=== PATIENT | female | born 1995 | race Caucasian/White ===

== ENCOUNTER 2021-06-11 01:17 | Emergency (ER) | payer OTHER, MEDICAID, SELFPAY ==
[2021-06-11 02:03] VITALS: BP 125/72; PULSE 68; RESP 20; TEMP 36.8; O2SAT 98; BMI 19.5
--- NOTE | 2021-06-11 02:16 | ED_ITS ---
Documented by User: JOHN Cano 06/11/21 02:44 HPI - Female Genitourinary General: Chief complaint: Urogenital-Female Stated complaint: UTI Time Seen by Provider: 06/11/21 02:15 History of Present Illness: 26-year-old female comes in today with complaints of left flank pain, nausea, and urinary difficulty. Patient has used some AZO for pain, and has taken at home urinary tract infection test. She showed me results of the test that showed negative nitrates but positive for white blood cells. Patient denies any chronic medical problems. MD elicited complaint: dysuria Onset (ago): hour(s) Location of symptoms: flank Severity: moderate Quality of pain: sharp Vaginal discharge: none Urinary symptoms: Dysuria Associated symptoms: Reports abdominal pain Sexual activity: Yes Patient : No Date of Last Menstrual Period: 06/02/21 Review of Systems General: Reports: 10 or more systems reviewed and unremarkable except in HPI and below Const: Reports: chills; Denies: fever(s) Card: Denies: chest pain Resp: Denies: dyspnea GI: Reports: abdominal pain : Reports: flank pain, difficulty voiding and urinary frequency Skin/Breast: Denies: rash [facility] ED Female Reproductive History: Date of last menstrual period: 06/02/21 Physical Exam Const: COMMON NORMALS: alert HENMT: COMMON NORMALS: normocephalic HEAD & SCALP: normocephalic Neck/C-Spine: COMMON NORMALS: full ROM Resp: COMMON NORMALS: normal respiratory effort and clear to auscultation bilaterally AUSCULTATION: clear to auscultation bilaterally Cardio: COMMON NORMALS: regular rate and regular rhythm RATE: regular rate RHYTHM: regular rhythm GI: COMMON NORMALS: Soft to palpation and non-tender PALPATION: Yes Soft to palpation : BLADDER/KIDNEY EXAM: Yes CVA tenderness on the left Back/Pelvis: GENERAL BACK: Yes CVA tenderness Extremity: COMMON NORMALS: normal to inspection Neuro: SENSORIUM/ORIENTATION: Yes alert Course Vital Signs: Vital signs: Vital Signs Temperature 98.2 F 06/11/21 02:03 Pulse Rate 68 06/11/21 02:03 Respiratory Rate 20 H 06/11/21 02:03 Blood Pressure 125/72 06/11/21 02:03 Pulse Oximetry 98 06/11/21 02:03 MDM - Female Medical Decision Making 26-year-old female comes in with left flank pain radiating into the groin and urinary discomfort. Symptoms started this morning. Patient taken some [id number] AZO and had taken a test for urinary tract infection which showed white blood cells in her urine. On exam patient has CVA tenderness on percussion to the left flank. Abdomen soft nontender. Skin is warm and dry. Differential diagnosis includes but not limited to renal calculi, urinary tract infection, pyelonephritis. Patient's urine was positive for nitrates and also scant amount of red and white blood cells. Strong suspicion for a mild pyelonephritis due to clinical exam. We will go ahead and treat with ceftriaxone 1 g IM. Continue with cephalexin for 5 days. Patient was given medication to help with nausea. Recommend follow-up with primary care for further instruction or return to the ER for worsening symptoms. Patient stated understanding. Lab Data Laboratory Results Urine Color [place] (Yellow) 06/11/21 02:25 Urine Appearance Clear (CLEAR) 06/11/21 02:25 Urine pH 5 (5-7) 06/11/21 02:25 Ur Specific [place] 1.010 (1.005-1.030) 06/11/21 02:25 Urine Protein 3+ (Negative) H 06/11/21 02:25 Urine Glucose (UA) Norm (Normal) 06/11/21 02:25 Urine Ketones Negative (Negative) 06/11/21 02:25 Urine Blood Neg (Negative) 06/11/21 02:25 Urine Nitrate Positive (Negative) H 06/11/21 02:25 Urine Bilirubin 2+ (Negative) H 06/11/21 02:25 Urine Urobilinogen 4+ mg/dL (Negative) H 06/11/21 02:25 Ur Leukocyte Esterase Negative (Negative) 06/11/21 02:25 Urine RBC 0-4 /hpf (0-2) H 06/11/21 02:25 Urine WBC 0-4 /hpf (0-5) H 06/11/21 02:25 Ur Squamous Epith Cells 0-4 /hpf (0-5) H 06/11/21 02:25 Amorphous Sediment Not Reportable 06/11/21 02:25 Urine Bacteria Trace /hpf (NONE) 06/11/21 02:25 Urine HCG, Qual Negative (Negative) 06/11/21 02:25 Discharge Plan Discharge Patient Disposition: Home Clinical Impression: Pyelonephritis Condition: Stable Prescriptions: New cephalexin 500 mg capsule 500 mg PO BID 5 Days Qty: 10 0RF ondansetron 4 mg tablet,disintegrating 4 mg PO Q8H PRN (Reason: nausea and vomiting) Qty: 7 0RF Discharge Orders: Discharge ED (Routine); Ordered 06/11/21 Ordered By: Elliot Galeano Discharge Diet: Usual diet Discharge Activity: Increase activity as tolerated Patient Instructions: Urinary Tract Infection in Women (ED) Activity Restrictions/Additional Instructions: Drink plenty of water. Take medication as directed. Follow-up with primary care for further instruction. Return to ER for new concerns. Coding Level of Care Code ED Senior Patient Account Representative for Chg Fwd Exam Comprehensive Documented by User: Kevyn Peck DO 06/11/21 03:30 HPI - Female Genitourinary General: Chief complaint: Urogenital-Female Stated complaint: UTI Time Seen by Provider: 06/11/21 02:15 Course Vital Signs: Vital signs: Vital Signs Temperature 98.2 F 06/11/21 02:03 Pulse Rate 68 06/11/21 02:03 Respiratory Rate 20 H 06/11/21 02:03 Blood Pressure 125/72 06/11/21 02:03 Pulse Oximetry 98 06/11/21 02:03 MDM - Female Medical Decision Making 26-year-old female comes in with left flank pain radiating into the groin and urinary discomfort. Symptoms started this morning. Patient taken some [id number] AZO and had taken a test for urinary tract infection which showed white blood cells in her urine. On exam patient has CVA tenderness on percussion to the left flank. Abdomen soft nontender. Skin is warm and dry. Differential diagnosis includes but not limited to renal calculi, urinary tract infection, pyelonephritis. Patient's urine was positive for nitrates and also scant amount of red and white blood cells. Strong suspicion for a mild pyelonephritis due to clinical exam. We will go ahead and treat with ceftriaxone 1 g IM. Continue with cephalexin for 5 days. Patient was given medication to help with nausea. Recommend follow-up with primary care for further instruction or return to the ER for worsening symptoms. Patient stated understanding. This patient was originally seen by JOHN Chen.? I agree with his history, evaluation, and treatment. Lab Data Laboratory Results Urine Color [place] (Yellow) 06/11/21 02:25 Urine Appearance Clear (CLEAR) 06/11/21 02:25 Urine pH 5 (5-7) 06/11/21 02:25 Ur Specific [place] 1.010 (1.005-1.030) 06/11/21 02:25 Urine Protein 3+ (Negative) H 06/11/21 02:25 Urine Glucose (UA) Norm (Normal) 06/11/21 02:25 Urine Ketones Negative (Negative) 06/11/21 02:25 Urine Blood Neg (Negative) 06/11/21 02:25 Urine Nitrate Positive (Negative) H 06/11/21 02:25 Urine Bilirubin 2+ (Negative) H 06/11/21 02:25 Urine Urobilinogen 4+ mg/dL (Negative) H 06/11/21 02:25 Ur Leukocyte Esterase Negative (Negative) 06/11/21 02:25 Urine RBC 0-4 /hpf (0-2) H 06/11/21 02:25 Urine WBC 0-4 /hpf (0-5) H 06/11/21 02:25 Ur Squamous Epith Cells 0-4 /hpf (0-5) H 06/11/21 02:25 Amorphous Sediment Not Reportable 06/11/21 02:25 Urine Bacteria Trace /hpf (NONE) 06/11/21 02:25 Urine HCG, Qual Negative (Negative) 06/11/21 02:25 Discharge Plan Discharge Patient Disposition: Home Clinical Impression: Pyelonephritis Condition: Stable Prescriptions: New cephalexin 500 mg capsule 500 mg PO BID 5 Days Qty: 10 0RF ondansetron 4 mg tablet,disintegrating 4 mg PO Q8H PRN (Reason: nausea and vomiting) Qty: 7 0RF Discharge Orders: Discharge ED (Routine); Ordered 06/11/21 Ordered By: Elliot Galeano Discharge Diet: Usual diet Discharge Activity: Increase activity as tolerated Patient Instructions: Urinary Tract Infection in Women (ED) Activity Restrictions/Additional Instructions: Drink plenty of water. Take medication as directed. Follow-up with primary care for further instruction. Return to ER for new concerns. Coding Level of Care Code ED Senior Patient Account Representative for Sylvie Fwd Exam Comprehensive
[2021-06-11 02:31] LABS: Add Urine Microscopic? YES; Bilirubin Urine 2+ (Negative); Blood Urine Neg (Negative); Glucose Urine UA Norm (Normal); Ketones Urine Negative (Negative); Leukocyte Esterase Urine Negative (Negative); Nitrate Urine Positive (Negative); Protein Urine 3+ (Negative); Urine Appearance Clear (CLEAR); Urine Color Orange (Yellow); Urobilinogen Urine 4+ mg/dL (Negative); pH Urine 5 (5-7)
[2021-06-11 02:37] LABS: Add Urine Culture? No; Bacteria Urine TRACE /hpf; RBC Urine 0-4 /hpf (0-2); Squamous Epithelial Cell Urine 0-4 /hpf (0-5); WBC Urine 0-4 /hpf (0-5)
[2021-06-11] MEDS: ondansetron 4 MG Tablet PO (02:57)
[2021-06-11] MEDS: cefTRIAXone 1,000 MG in lidocaine 1% 2.1 ML 2 MG IM (02:58)
== END 2021-06-11 03:05 | disposition home or self-care (01) ==
PROVIDERS: Emergency Provider Nurse Practitioner Family
DX: N12 Tubulo-interstitial nephritis, not specified as acute or chronic (principal)
CPT/HCPCS: 81001; 81025; 96372; 99283; J0696; Q0162

== ENCOUNTER → 2021-06-14 08:03 | Outpatient (BNVA) | payer OTHER, MEDICAID, SELFPAY | PROVIDERS: Visit Provider Family Medicine Adult Medicine | DX: R39.9 Unspecified symptoms and signs involving the genitourinary system (principal); N12 Tubulo-interstitial nephritis, not specified as acute or chronic | CPT/HCPCS: 81003; 87086; 87491; 87591 ==

== ENCOUNTER 2021-06-15 11:28 | Emergency (ER) | payer OTHER, MEDICAID, SELFPAY ==
[2021-06-15 11:45] VITALS: BP 125/72; PULSE 82; RESP 14; TEMP 36.9; O2SAT 97; BMI 19.5
--- NOTE | 2021-06-15 11:58 | ED_ITS ---
Documented by User: ALFREDO Mcclure 06/16/21 12:26 HPI - General Adult General: Chief complaint: General Medical Stated complaint: Pt states she has kidney infection pain on rt side Time Seen by Provider: 06/15/21 11:51 History of Present Illness: Patient is a 26-year-old female comes to the ED with UTI symptoms and right flank pain. She says symptoms have been going on for about 2 weeks now. Patient was seen here in the emergency department back on June 11 for same complaint. She was diagnosed with pyelonephritis and discharged home on cephalexin. She was not having any improvement in symptoms and then followed up with urgent care yesterday and they changed her antibiotic to ciprofloxacin. She just started taking the Cipro yesterday. She is still having dysuria and now is having some bilateral flank pain. She says the right sided flank pain started today. Denies any current nausea or vomiting. She also endorses having some right and left lower abdominal tenderness. Associated symptoms: Deny chest pain, dyspnea, headache(s), nausea, rash, palpitations or vomiting Review of Systems Const: Denies: fever(s), chills or fatigue Eyes: Denies: change in vision or eye discomfort ENMT: Denies: throat pain, odynophagia, nasal discharge or nasal congestion Card: Denies: chest pain, palpitations, edema, swelling of feet/ankles, dyspnea on exertion or orthopnea Resp: Denies: dyspnea, productive cough or non-productive cough GI: Denies: abdominal pain, nausea, vomiting, diarrhea, constipation or hematochezia : Reports: flank pain and dysuria; Denies: hematuria Musc: Denies: neck pain, back pain or extremity swelling Skin/Breast: Denies: rash or new lesions Neuro: Denies: headache(s), numbness in extremities or weakness in extremities PFSH ED PFSH: Medical History No pertinent family history Surgical History No pertinent past surgical history Social History Smoking and tobacco status: never smoked Female Reproductive History: Date of last menstrual period: 06/02/21 Physical Exam Const: COMMON NORMALS: no acute distress, patient oriented x3, healthy appearing and alert GENERAL APPEARANCE: cooperative and comfortable HENMT: COMMON NORMALS: normocephalic HEAD & SCALP: normocephalic MOUTH: Normal oral and palatal mucosa present THROAT: posterior oropharynx normal and uvula midline Neck/C-Spine: COMMON NORMALS: supple GENERAL: Yes normal visual inspection Resp: COMMON NORMALS: normal respiratory effort, No retractions, No use of accessory muscles and clear to auscultation bilaterally AUSCULTATION: clear to auscultation bilaterally Cardio: COMMON NORMALS: regular rate, regular rhythm, S1 normal heart sound present, S2 normal heart sound present, No gallops present (Cardio), No clicks present (Cardio), No murmurs present (Cardio) and Peripheral pulses 2+ throughout RATE: regular rate RHYTHM: regular rhythm HEART SOUNDS: S1 normal heart sound present and S2 normal heart sound present PERIPHERAL PULSES: Peripheral pulses 2+ throughout GI: COMMON NORMALS: Normal to inspection, nondistended, normoactive bowel sounds present, Soft to palpation, non-tender and no masses PALPATION: Yes Soft to palpation : BLADDER/KIDNEY EXAM: Yes CVA tenderness Back/Pelvis: GENERAL BACK: Yes CVA tenderness CVA tenderness: bilateral Extremity: COMMON NORMALS: normal to inspection and no pedal edema Neuro: COMMON NORMALS: patient oriented x3 and moves all extremities SENSORIUM/ORIENTATION: Yes alert Skin: GENERAL SKIN EXAM: dry skin Course Vital Signs: Vital signs: Vital Signs Temperature 98.4 F 06/15/21 11:45 Pulse Rate 82 06/15/21 12:47 Respiratory Rate 18 06/15/21 12:47 Blood Pressure 122/78 06/15/21 12:09 Pulse Oximetry 92 06/15/21 12:47 [facility] - General Adult Medical Decision Making Patient is a 26-year-old female who comes to the ED with lower back pain and UTI symptoms. She was seen here in the ED for same complaint on June 11 and was diagnosed with pyelonephritis and discharged home with cephalexin. Symptoms were not improving and she saw urgent care yesterday and they switched her to ciprofloxacin. She just started taking Cipro yesterday. She is still having bilateral flank pain. Vitals are stable. She has some bilateral CVA tenderness but the rest of exam is benign. Patient appears healthy and nontoxic and in no acute distress or pain. CBC, CMP and UA were unremarkable. hCG negative. CT of abdomen pelvis showed bilateral ovarian follicles but no other acute process. Patient was diagnosed with UTI symptoms and was discharged home. She was told to continue taking her ciprofloxacin as previously prescribed. Patient is new in town and would like to get set up with a primary care physician so I placed an order with case management to refer her to one. Return ED precautions given. Patient understood and agreed with plan. Lab Data I reviewed the patient's lab results. : 06/15/21 12:08 06/15/21 12:08 Radiology Impressions Abdomen/Pelvis CT 06/15/21 13:08 IMPRESSION: 1. No renal obstruction or perinephric stranding. 2. No ascites. 3. Bilateral ovarian follicles. 4. No free fluid in the pelvis. 5. Partially visualized appendix appears normal. Laboratory Results WBC 6.0 10^3/uL (4.0-10.0) 06/15/21 12:08 RBC 4.11 10^6/uL (4.1-5.3) 06/15/21 12:08 Hgb 12.2 g/dL (11.5-15.3) 06/15/21 12:08 Hct 37.7 % (37.0-47.0) 06/15/21 12:08 MCV 91.7 fl (81-99) 06/15/21 12:08 MCH 29.7 pg (28.0-34.0) 06/15/21 12:08 MCHC 32.4 g/dL (30.0-36.0) 06/15/21 12:08 RDW 12.7 % (12.1-15.1) 06/15/21 12:08 Plt Count 342 10^3/cmm (130-400) 06/15/21 12:08 MPV 9.6 fL (7.4-10.4) 06/15/21 12:08 Neut % (Auto) 58.5 % 06/15/21 12:08 Lymph % (Auto) 34.5 % 06/15/21 12:08 [place] % (Auto) 5.4 % 06/15/21 12:08 Eos % (Auto) 0.8 % 06/15/21 12:08 Baso % (Auto) 0.5 % 06/15/21 12:08 Neut # (Auto) 3.49 10^3/uL (1.8-7.7) 06/15/21 12:08 Lymph # (Auto) 2.1 10^3/uL (0.8-4.8) 06/15/21 12:08 [place] # (Auto) 0.3 10^3/uL (0.2-0.9) 06/15/21 12:08 Eos # (Auto) 0.1 10^3/uL (0.0-0.8) 06/15/21 12:08 Baso # (Auto) 0.0 10^3/uL (0.0-0.1) 06/15/21 12:08 Nucleated RBC % (auto) 0 % 06/15/21 12:08 Nucleated RBCs # 0.0 /100WBC 06/15/21 12:08 Sodium 139 mmol/L (136-145) 06/15/21 12:08 Potassium 3.4 mmol/L (3.5-5.1) L 06/15/21 12:08 Chloride 102 mmol/L (98-107) 06/15/21 12:08 Carbon Dioxide 27 mmol/L (22-29) 06/15/21 12:08 Anion Gap 13.4 (5-19) 06/15/21 12:08 BUN 8 mg/dL (6-20) 06/15/21 12:08 Creatinine 0.6 mg/dL (0.5-0.9) 06/15/21 12:08 GFR Calculation 119.9 mL/min (90-130) 06/15/21 12:08 Glucose 102 mg/dL (65-115) 06/15/21 12:08 Calculated Osmolality 287 mOsm/kg (285-295) 06/15/21 12:08 Calcium 9.4 mg/dL (8.5-10.5) 06/15/21 12:08 Total Bilirubin 0.9 mg/dL (0.15-1.2) 06/15/21 12:08 AST 12 U/L (0-32) 06/15/21 12:08 ALT 10 U/L (0-33) 06/15/21 12:08 Alkaline Phosphatase 37 IU/L (35-105) 06/15/21 12:08 Total Protein 7.2 g/dL (6.6-8.7) 06/15/21 12:08 Albumin 5.0 g/dL (3.5-5.2) 06/15/21 12:08 Globulin 2.2 g/dL (1.3-4.6) 06/15/21 12:08 Lipase 39 U/L (13-60) 06/15/21 12:08 HCG, Qual Negative (Negative) 06/15/21 12:08 Urine Color Yellow (Yellow) 06/15/21 12:08 Urine Appearance Clear (CLEAR) 06/15/21 12:08 Urine pH 5 (5-7) 06/15/21 12:08 Ur Specific [place] 1.025 (1.005-1.030) 06/15/21 12:08 Urine Protein Neg (Negative) 06/15/21 12:08 Urine Glucose (UA) Norm (Normal) 06/15/21 12:08 Urine Ketones 1+ (Negative) H 06/15/21 12:08 Urine Blood Neg (Negative) 06/15/21 12:08 Urine Nitrate Negative (Negative) 06/15/21 12:08 Urine Bilirubin Neg (Negative) 06/15/21 12:08 Urine Urobilinogen Norm mg/dL (Negative) 06/15/21 12:08 Ur Leukocyte Esterase Negative (Negative) 06/15/21 12:08 Discharge Plan Discharge Patient Disposition: Home Clinical Impression: UTI symptoms, Follicular cyst of both ovaries Condition: Stable Prescriptions: No Action cranberry fruit concentrate [Azo Cranberry] 1 tab PO PRN PRN (Reason: Pain) 0RF ciprofloxacin HCl 500 mg tablet 500 mg PO BID Qty: 30 0RF ProAir HFA 90 mcg/actuation Hfa Aerosol Inhaler 2 puff INHALATION QID PRN (Reason: Shortness Of Breath) 0RF ondansetron 4 mg tablet,disintegrating 4 mg PO Q8H PRN (Reason: nausea and vomiting) Qty: 7 0RF Discharge Orders: Discharge ED (Routine); Ordered 06/15/21 Ordered By: Jer Howell Discharge Diet: Regular Discharge Activity: Resume usual activity Patient Instructions: Ovarian Cyst (ED), Urinary Tract Infection in Women (DC) Activity Restrictions/Additional Instructions: Follow-up with medical provider as directed. Case management be contacting you next several days to set up an appoint with primary care physician. Continue taking ciprofloxacin as prescribed. Return to the ER or your medical provider if condition worsens. Please read and understand discharge instructions. Thank you for choosing [facility] for your healthcare needs today. Please realize this is an emergency room and that we are providing you with a medical screening exam and this may not be complete and all inclusive of all the testing and or work up that you may need to determine your ailment or severity of your illness. It is very important that you follow up as instructed or that you return to the Emergency Department should you have concerns or if your condition changes or worsens in any way. Coding Level of Care Code ED Project Development Leader for Chg Fwd Exam Comprehensive Documented by User: Cirpiano Headley DO 06/16/21 14:23 HPI - General Adult General: Chief complaint: General Medical Stated complaint: Pt states she has kidney infection pain on rt side Time Seen by Provider: 06/15/21 11:51 [facility] ED PFSH: Medical History No pertinent family history Surgical History No pertinent past surgical history Social History Smoking and tobacco status: never smoked Course Vital Signs: Vital signs: Vital Signs Temperature 98.4 F 06/15/21 11:45 Pulse Rate 82 06/15/21 12:47 Respiratory Rate 18 06/15/21 12:47 Blood Pressure 122/78 06/15/21 12:09 Pulse Oximetry 92 06/15/21 12:47 MDM - General Adult Medical Decision Making Patient is a 26-year-old female who comes to the ED with lower back pain and UTI symptoms. She was seen here in the ED for same complaint on June 11 and was diagnosed with pyelonephritis and discharged home with cephalexin. Symptoms were not improving and she saw urgent care yesterday and they switched her to ciprofloxacin. She just started taking Cipro yesterday. She is still having bilateral flank pain. Vitals are stable. She has some bilateral CVA tenderness but the rest of exam is benign. Patient appears healthy and nontoxic and in no acute distress or pain. CBC, CMP and UA were unremarkable. hCG negative. CT of abdomen pelvis showed bilateral ovarian follicles but no other acute process. Patient was diagnosed with UTI symptoms and was discharged home. She was told to continue taking her ciprofloxacin as previously prescribed. Patient is new in town and would like to get set up with a primary care physician so I placed an order with case management to refer her to one. Return ED precautions given. Patient understood and agreed with plan. Chart reviewed and patient discussed with midlevel. Agree with assessment and plan. Medical Records I reviewed the patient's medical records. Lab Data : 06/15/21 12:08 06/15/21 12:08 Radiology Impressions Abdomen/Pelvis CT 06/15/21 13:08 IMPRESSION: 1. No renal obstruction or perinephric stranding. 2. No ascites. 3. Bilateral ovarian follicles. 4. No free fluid in the pelvis. 5. Partially visualized appendix appears normal. Laboratory Results WBC 6.0 10^3/uL (4.0-10.0) 06/15/21 12:08 RBC 4.11 10^6/uL (4.1-5.3) 06/15/21 12:08 Hgb 12.2 g/dL (11.5-15.3) 06/15/21 12:08 Hct 37.7 % (37.0-47.0) 06/15/21 12:08 MCV 91.7 fl (81-99) 06/15/21 12:08 MCH 29.7 pg (28.0-34.0) 06/15/21 12:08 MCHC 32.4 g/dL (30.0-36.0) 06/15/21 12:08 RDW 12.7 % (12.1-15.1) 06/15/21 12:08 Plt Count 342 10^3/cmm (130-400) 06/15/21 12:08 MPV 9.6 fL (7.4-10.4) 06/15/21 12:08 Neut % (Auto) 58.5 % 06/15/21 12:08 Lymph % (Auto) 34.5 % 06/15/21 12:08 [place] % (Auto) 5.4 % 06/15/21 12:08 Eos % (Auto) 0.8 % 06/15/21 12:08 Baso % (Auto) 0.5 % 06/15/21 12:08 Neut # (Auto) 3.49 10^3/uL (1.8-7.7) 06/15/21 12:08 Lymph # (Auto) 2.1 10^3/uL (0.8-4.8) 06/15/21 12:08 [place] # (Auto) 0.3 10^3/uL (0.2-0.9) 06/15/21 12:08 Eos # (Auto) 0.1 10^3/uL (0.0-0.8) 06/15/21 12:08 Baso # (Auto) 0.0 10^3/uL (0.0-0.1) 06/15/21 12:08 Nucleated RBC % (auto) 0 % 06/15/21 12:08 Nucleated RBCs # 0.0 /100WBC 06/15/21 12:08 Sodium 139 mmol/L (136-145) 06/15/21 12:08 Potassium 3.4 mmol/L (3.5-5.1) L 06/15/21 12:08 Chloride 102 mmol/L (98-107) 06/15/21 12:08 Carbon Dioxide 27 mmol/L (22-29) 06/15/21 12:08 Anion Gap 13.4 (5-19) 06/15/21 12:08 BUN 8 mg/dL (6-20) 06/15/21 12:08 Creatinine 0.6 mg/dL (0.5-0.9) 06/15/21 12:08 GFR Calculation 119.9 mL/min (90-130) 06/15/21 12:08 Glucose 102 mg/dL (65-115) 06/15/21 12:08 Calculated Osmolality 287 mOsm/kg (285-295) 06/15/21 12:08 Calcium 9.4 mg/dL (8.5-10.5) 06/15/21 12:08 Total Bilirubin 0.9 mg/dL (0.15-1.2) 06/15/21 12:08 AST 12 U/L (0-32) 06/15/21 12:08 ALT 10 U/L (0-33) 06/15/21 12:08 Alkaline Phosphatase 37 IU/L (35-105) 06/15/21 12:08 Total Protein 7.2 g/dL (6.6-8.7) 06/15/21 12:08 Albumin 5.0 g/dL (3.5-5.2) 06/15/21 12:08 Globulin 2.2 g/dL (1.3-4.6) 06/15/21 12:08 Lipase 39 U/L (13-60) 06/15/21 12:08 HCG, Qual Negative (Negative) 06/15/21 12:08 Urine Color Yellow (Yellow) 06/15/21 12:08 Urine Appearance Clear (CLEAR) 06/15/21 12:08 Urine pH 5 (5-7) 06/15/21 12:08 Ur Specific [place] 1.025 (1.005-1.030) 06/15/21 12:08 Urine Protein Neg (Negative) 06/15/21 12:08 Urine Glucose (UA) Norm (Normal) 06/15/21 12:08 Urine Ketones 1+ (Negative) H 06/15/21 12:08 Urine Blood Neg (Negative) 06/15/21 12:08 Urine Nitrate Negative (Negative) 06/15/21 12:08 Urine Bilirubin Neg (Negative) 06/15/21 12:08 Urine Urobilinogen Norm mg/dL (Negative) 06/15/21 12:08 Ur Leukocyte Esterase Negative (Negative) 06/15/21 12:08 Discharge Plan Discharge Patient Disposition: Home Clinical Impression: UTI symptoms, Follicular cyst of both ovaries Condition: Stable Prescriptions: No Action cranberry fruit concentrate [Azo Cranberry] 1 tab PO PRN PRN (Reason: Pain) 0RF ciprofloxacin HCl 500 mg tablet 500 mg PO BID Qty: 30 0RF ProAir HFA 90 mcg/actuation Hfa Aerosol Inhaler 2 puff INHALATION QID PRN (Reason: Shortness Of Breath) 0RF ondansetron 4 mg tablet,disintegrating 4 mg PO Q8H PRN (Reason: nausea and vomiting) Qty: 7 0RF Discharge Orders: Discharge ED (Routine); Ordered 06/15/21 Ordered By: Jer Howell Discharge Diet: Regular Discharge Activity: Resume usual activity Patient Instructions: Ovarian Cyst (ED), Urinary Tract Infection in Women (DC) Activity Restrictions/Additional Instructions: Follow-up with medical provider as directed. Case management be contacting you next several days to set up an appoint with primary care physician. Continue taking ciprofloxacin as prescribed. Return to the ER or your medical provider if condition worsens. Please read and understand discharge instructions. Thank you for choosing [facility] for your healthcare needs today. Please realize this is an emergency room and that we are providing you with a medical screening exam and this may not be complete and all inclusive of all the testing and or work up that you may need to determine your ailment or severity of your illness. It is very important that you follow up as instructed or that you return to the Emergency Department should you have concerns or if your condition changes or worsens in any way. Coding Level of Care Code ED Project Development Leader for Sylvie Holley Exam Comprehensive
[2021-06-15 12:09] VITALS: BP 122/78; PULSE 78; RESP 18; O2SAT 100
[2021-06-15 12:14] LABS: Add Urine Microscopic? NO; Charge for UA Resulting for Rev
[2021-06-15 12:16] LABS: Basophils % 0.5 %; Eosinophils # 0.1 10^3/uL (0.0-0.8); Eosinophils % 0.8 %; Hematocrit 37.7 % (37.0-47.0); Hemoglobin 12.2 g/dL (11.5-15.3); Lymphocytes # 2.1 10^3/uL (0.8-4.8); Lymphocytes % 34.5 %; Mean Corpuscular HGB Conc 32.4 g/dL (30.0-36.0); Mean Corpuscular Hemoglobin 29.7 pg (28.0-34.0); Mean Corpuscular Volume 91.7 fl (81-99); Mean Platelet Volume 9.6 fL (7.4-10.4); Monocytes # 0.3 10^3/uL (0.2-0.9); Monocytes % 5.4 %; Neutrophils # 3.49 10^3/uL (1.8-7.7); Neutrophils % 58.5 %; Nucleated Red Blood Cells % 0 %; Platelet Count 342 10^3/cmm (130-400); Red Blood Count 4.11 10^6/uL (4.1-5.3); Red Cell Distribution Width 12.7 % (12.1-15.1)
[2021-06-15 12:46] LABS: HCG Qualitative Urine. Negative (Negative)
[2021-06-15 12:47] VITALS: PULSE 82; RESP 18; O2SAT 92
[2021-06-15 12:55] LABS: Alanine Aminotransferase 10 U/L (0-33); Alkaline Phosphatase 37 IU/L (35-105); Anion Gap 13.4 (5-19); Aspartate Amino Transferase 12 U/L (0-32); Blood Urea Nitrogen 8 mg/dL (6-20); Calcium 9.4 mg/dL (8.5-10.5); Carbon Dioxide 27 mmol/L (22-29); Chloride 102 mmol/L (98-107); Globulin 2.2 g/dL (1.3-4.6); Glomerular Filtration Rate 119.9 mL/min (90-130); Glucose 102 mg/dL (65-115); Lipase 39 U/L (13-60); Osmolality Calculated 287 mOsm/kg (285-295); Potassium 3.4 mmol/L (3.5-5.1); Sodium 139 mmol/L (136-145); Total Bilirubin 0.9 mg/dL (0.15-1.2); Total Protein 7.2 g/dL (6.6-8.7)
[2021-06-15 13:01] LABS: Bilirubin Urine Neg (Negative); Blood Urine Neg (Negative); Glucose Urine UA Norm (Normal); Ketones Urine 1+ (Negative); Leukocyte Esterase Urine Negative (Negative); Nitrate Urine Negative (Negative); Protein Urine Neg (Negative); Specific Gravity, Urine 1.025 (1.005-1.030); Urine Appearance Clear (CLEAR); Urine Color Yellow (Yellow); Urobilinogen Urine Norm (Negative); pH Urine 5 (5-7)
--- NOTE | 2021-06-15 13:08 | CT_ITS ---
WS: [id number] CT ABDOMEN AND PELVIS WITH CONTRAST HISTORY: bilateral flank pain, bilat lower abdomen pain and dysuria TECHNIQUE: Imaging performed of the abdomen and pelvis with IV contrast. Single phase imaging of the abdomen. Coronal and sagittal reformats are submitted. All CT scans at [facility] use at [address] one of these dose optimization techniques: automated exposure control; mA and/or kV adjustment per patient size (includes targeted exams where dose is matched to clinical indication); or iterative re construction. IV CONTRAST: Omnipaque 300; 95 mL IV. Oral contrast: No DLP: 699.48 mGy.cm COMPARISON: None available. Lower thorax: Lung bases are clear. Heart is normal size. No hiatal hernia. Liver/biliary system: Normal size with no intrahepatic dilatation. Gallbladder: Normal. No gallstones or wall thickening. No pericholecystic fluid. Pancreas: Normal size pancreas and pancreatic duct. No adjacent inflammation. Spleen: Normal size spleen. No mass or infarct. Adrenal glands: Normal. Right kidney: Normal. Left kidney: Normal. Aorta: Normal. Lymphadenopathy: None. Free fluid: None. GI tract: Marked distention of the stomach with food products and air. No small bowel obstruction. Th ere is mild diffuse fecal retention and constipation. The appendix is only partially visualized. Visu alized appendix does appear normal. There is no adjacent inflammation in the RIGHT lower quadrant. Abdominal wall: Unremarkable abdominal wall. No hernia. Pelvis: No free fluid or adenopathy within the pelvis. There are small follicles within each ovary. L argest follicle RIGHT ovary measures 17 x 13 mm. There is a small corpus luteum in the LEFT ovary evi suring 13 mm with peripheral enhancement. Bones: Unremarkable. CT/CT abdomen pelvis w con* [id number] IMPRESSION: 1. No renal obstruction or perinephric stranding. 2. No ascites. 3. Bilateral ovarian follicles. 4. No free fluid in the pelvis. 5. Partially visualized appendix appears normal.
[2021-06-15] MEDS: iohexol 300 mg/mL 100 mL Btl IV (13:28)
[2021-06-15] MEDS: ondansetron 2 mg/ML SDV 2 mL 4 MG IVP (14:30)
--- NOTE | 2021-06-17 10:56 | DCPLANNER ---
airport manager had message to speak with patient about getting established with a primary care physician. airport manager spoke with patient, she stated that she has a primary care physician.
== END 2021-06-15 14:38 | disposition home or self-care (01) ==
PROVIDERS: Emergency Provider Physician Assistant
DX: N83.02 Follicular cyst of left ovary (principal); N83.01 Follicular cyst of right ovary; N39.0 Urinary tract infection, site not specified
CPT/HCPCS: 74177; 80053; 81003; 81025; 83690; 85025; 96374; 99283; J2405; Q9967

== ENCOUNTER → 2021-06-16 15:03 | Outpatient (BNVA) | payer OTHER, SELFPAY | PROVIDERS: Visit Provider Family Medicine Adult Medicine | DX: R39.9 Unspecified symptoms and signs involving the genitourinary system (principal); N83.01 Follicular cyst of right ovary; N83.02 Follicular cyst of left ovary; F32.81 Premenstrual dysphoric disorder; N92.4 Excessive bleeding in the premenopausal period | CPT/HCPCS: 81000 ==

== ENCOUNTER 2021-06-20 19:01 | Emergency (ER) | payer OTHER, MEDICAID, SELFPAY ==
[2021-06-20 19:05] VITALS: BP 127/86; PULSE 67; RESP 16; TEMP 36.8; O2SAT 100; BMI 19.5
--- NOTE | 2021-06-20 19:28 | W.ED.GENADLT ---
HPI - General Adult General: Chief complaint: General Medical Stated complaint: ovary pain Time Seen by Provider: 06/20/21 19:09 History of Present Illness: Patient is a 26-year-old female with history of 2 prior presenting to the emergency room for evaluation of left-sided flank pain. Patient tells me she was seen on 06/15 and 06/16 for similar pain. At those visits, patient was diagnosed with either UTI versus pyelonephritis versus kidney stone. Patient has been taking ciprofloxacin without any significant symptom. Patient continues to have left-sided flank pain. Patient denies any urinary complaints today including urinary urgency, hematuria or polyuria. Patient has no prior history of kidney stones. Patient denies any new vaginal discharge. Patient reports no problem with p.o. intake, nausea/vomiting fever/chills or diarrhea, melena hematochezia. Onset: 7 days Duration:ongoing Location:flank pain Severity:mild/moderate Associated symptoms: Deny chest pain, dyspnea, nausea, rash, palpitations or vomiting Review of Systems Const: Denies: fever(s) or chills Eyes: Denies: change in vision ENMT: Denies: mouth pain Card: Denies: chest pain or palpitations Resp: Denies: dyspnea or non-productive cough GI: Reports: other (+L sided flank pain); Denies: abdominal pain, nausea, vomiting or diarrhea : Denies: dysuria Musc: Denies: extremity pain Skin/Breast: Denies: rash or new lesions Neuro: Denies: weakness in extremities Psych: Reports: other (Normal mood) Rubén/Lymph: Denies: easy bruising PFSH ED PFSH: Medical History Menorrhagia, premenopausal No pertinent family history Pre-menstrual mood disorder Surgical History No pertinent past surgical history Social History Smoking and tobacco status: never smoked Physical Exam Const: COMMON NORMALS: alert HENMT: COMMON NORMALS: atraumatic HEAD & SCALP: atraumatic MOUTH: moist mucous membranes not abnormal Eye: COMMON NORMALS: EOMs intact bilaterally and conjunctivae normal CONJUNCTIVA: Yes conjunctivae normal Neck/C-Spine: COMMON NORMALS: full ROM and supple Resp: COMMON NORMALS: normal respiratory effort and clear to auscultation bilaterally AUSCULTATION: clear to auscultation bilaterally Cardio: COMMON NORMALS: regular rate RATE: regular rate GI: COMMON NORMALS: Soft to palpation and non-tender PALPATION: Yes Soft to palpation OTHER: No focal TTP. NO guarding rebound, guarding, rigidity. No CVA tenderness to percussion. Neg Webb/Neg McBurney's point tenderness, no suprabupic tenderness to palpation. Extremity: COMMON NORMALS: full ROM Neuro: SENSORIUM/ORIENTATION: Yes alert MOTOR EXAM: No Abnormal motor strength present and Other motor observations present (no focal motor deficits) Psych: COMMON NORMALS: speech normal SPEECH: Yes normal speech MOOD & AFFECT: Yes euthymic mood Course Vital Signs: Vital signs: Vital Signs Temperature 98.3 F 06/20/21 19:05 Pulse Rate 92 06/20/21 21:58 Respiratory Rate 14 06/20/21 21:58 Blood Pressure 123/58 06/20/21 21:58 Pulse Oximetry 99 06/20/21 21:58 MDM - General Adult Medical Decision Making 26-year-old female presenting to the emergency room for evaluation of persistent left-sided flank pain despite on antibiotics for UTI versus pyelonephritis. On exam, patient has no focal tenderness palpation. No CVA tenderness, no guarding no rebound tenderness. Blood work showed no signs of UTI or signs of kidney stones. Creatinine within normal limit. No other focal findings. Patient received GI cocktail, IVF, Tylenol with improvement in symptoms. No suspicion for other acute intra-abdominal pathology including SBO, biliary pathology, appendicitis, diverticulitis, or other emergent condition requiring surgery. Instructed to follow PCP for further evaluation and management of symptoms today. Rx tylenol PRN abd pain, maalox/pepcid PRN dyspepsia, and zofran PRN nausea/vomiting Disposition: Discharge. Patient counseled regarding diagnostic impression, treatment plan. Patient given ED strict return precautions to return for continuation, worsening, or development of new symptoms. Instructed to f/u w/ PCP regarding symptoms today. Patient verbalized understanding. Lab Data : 06/20/21 20:02 06/20/21 20:02 Laboratory Results WBC 7.8 10^3/uL (4.0-10.0) 06/20/21 20:02 RBC 4.25 10^6/uL (4.1-5.3) 06/20/21 20: Hgb 12.4 g/dL (11.5-15.3) 06/20/21 20: Hct 38.4 % (37.0-47.0) 06/20/21 20: MCV 90.4 fl (81-99) 06/20/21 20: MCH 29.2 pg (28.0-34.0) 06/20/21 20: MCHC 32.3 g/dL (30.0-36.0) 06/20/21 20: RDW 12.7 % (12.1-15.1) 06/20/21 20: Plt Count 335 10^3/cmm (130-400) 06/20/21 20: MPV 9.5 fL (7.4-10.4) 06/20/21 20: Neut % (Auto) 61.3 % 06/20/21 20: Lymph % (Auto) 30.6 % 06/20/21 20: [place] % (Auto) 7.1 % 06/20/21 20: Eos % (Auto) 0.5 % 06/20/21 20: Baso % (Auto) 0.4 % 06/20/21 20: Neut # (Auto) 4.80 10^3/uL (1.8-7.7) 06/20/21 20: Lymph # (Auto) 2.4 10^3/uL (0.8-4.8) 06/20/21 20: [place] # (Auto) 0.6 10^3/uL (0.2-0.9) 06/20/21 20: Eos # (Auto) 0.0 10^3/uL (0.0-0.8) 06/20/21 20: Baso # (Auto) 0.0 10^3/uL (0.0-0.1) 06/20/21 20: Nucleated RBC % (auto) 0 % 06/20/21 20: Nucleated RBCs # 0.0 /100WBC 06/20/21 20: Sodium 139 mmol/L (136-145) 06/20/21 20:02 Potassium 3.5 mmol/L (3.5-5.1) 06/20/21 20:02 Chloride 100 mmol/L (98-107) 06/20/21 20:02 Carbon Dioxide 26 mmol/L (22-29) 06/20/21 20:02 Anion Gap 16.5 (5-19) 06/20/21 20:02 BUN 14 mg/dL (6-20) 06/20/21 20:02 Creatinine 0.6 mg/dL (0.5-0.9) 06/20/21 20:02 GFR Calculation 119.9 mL/min (90-130) 06/20/21 20:02 Glucose 94 mg/dL (65-115) 06/20/21 20:02 Calculated Osmolality 288 mOsm/kg (285-295) 06/20/21 20:02 Calcium 9.9 mg/dL (8.5-10.5) 06/20/21 20:02 Total Bilirubin 1.1 mg/dL (0.15-1.2) 06/20/21 20:02 AST 12 U/L (0-32) 06/20/21 20:02 ALT 10 U/L (0-33) 06/20/21 20:02 Alkaline Phosphatase 40 IU/L (35-105) 06/20/21 20:02 Total Protein 8.2 g/dL (6.6-8.7) 06/20/21 20:02 Albumin 5.3 g/dL (3.5-5.2) H 06/20/21 20:02 Globulin 2.9 g/dL (1.3-4.6) 06/20/21 20:02 Lipase 32 U/L (13-60) 06/20/21 20:02 Urine Color Straw (Yellow) 06/20/21 19:17 Urine Appearance Hazy (CLEAR) A 06/20/21 19:17 Urine pH 7 (5-7) 06/20/21 19:17 Ur Specific [place] 1.010 (1.005-1.030) 06/20/21 19:17 Urine Protein Neg (Negative) 06/20/21 19:17 Urine Glucose (UA) Norm (Normal) 06/20/21 19:17 Urine Ketones 1+ (Negative) H 06/20/21 19:17 Urine Blood Neg (Negative) 06/20/21 19:17 Urine Nitrate Negative (Negative) 06/20/21 19:17 Urine Bilirubin Neg (Negative) 06/20/21 19:17 Urine Urobilinogen Norm mg/dL (Negative) 06/20/21 19:17 Ur Leukocyte Esterase Negative (Negative) 06/20/21 19:17 Urine RBC 0-4 /hpf (0-2) H 06/20/21 19:17 Urine WBC 0-4 /hpf (0-5) H 06/20/21 19:17 Ur Squamous Epith Cells 15-25 /hpf (0-5) H 06/20/21 19:17 Amorphous Sediment Not Reportable 06/20/21 19:17 Urine Bacteria 1+ /hpf (NONE) H 06/20/21 19:17 Discharge Plan Discharge Patient Disposition: Home Clinical Impression: Flank pain Condition: Stable Prescriptions: New acetaminophen 500 mg tablet 500 mg PO Q6H PRN (Reason: pain) 5 Days Qty: 20 0RF Maalox Advanced 1,000-60 mg tablet,chewable 1 tab PO TID PRN (Reason: abdominal pain) 7 Days Qty: 21 0RF Pepcid 20 mg tablet 20 mg PO BID PRN (Reason: abdominal pain) 10 Days Qty: 20 0RF No Action ciprofloxacin HCl 500 mg tablet 500 mg PO BID Qty: 30 0RF albuterol sulfate [ProAir HFA] 90 mcg/actuation Hfa Aerosol Inhaler 2 puff INHALATION QID PRN (Reason: Shortness Of Breath) 0RF Discharge Orders: Discharge ED (Routine); Ordered 06/20/21 Ordered By: ePrla Cooney Discharge Diet: Advance as tolerated Discharge Activity: Increase activity as tolerated Patient Instructions: Abdominal Pain (ED) Activity Restrictions/Additional Instructions: Please come back if you have any worsening abdominal pain, fever or chills, nausea or vomiting, diarrhea, blood in the stool, inability hold down liquid or solids, or any new concerning complaints. Coding Level of Care Code ED Textile Machinery Sales Representative for Chg Fwd Exam Comprehensive
[2021-06-20 20:12] LABS: Basophils % 0.4 %; Eosinophils % 0.5 %; Hematocrit 38.4 % (37.0-47.0); Hemoglobin 12.4 g/dL (11.5-15.3); Lymphocytes # 2.4 10^3/uL (0.8-4.8); Lymphocytes % 30.6 %; Mean Corpuscular HGB Conc 32.3 g/dL (30.0-36.0); Mean Corpuscular Hemoglobin 29.2 pg (28.0-34.0); Mean Corpuscular Volume 90.4 fl (81-99); Mean Platelet Volume 9.5 fL (7.4-10.4); Monocytes # 0.6 10^3/uL (0.2-0.9); Monocytes % 7.1 %; Neutrophils % 61.3 %; Nucleated Red Blood Cells % 0 %; Platelet Count 335 10^3/cmm (130-400); Red Blood Count 4.25 10^6/uL (4.1-5.3); Red Cell Distribution Width 12.7 % (12.1-15.1); White Blood Count 7.8 10^3/uL (4.0-10.0)
[2021-06-20 20:25] LABS: Add Urine Microscopic? YES; Bacteria Urine 1+ /hpf; Bilirubin Urine Neg (Negative); Blood Urine Neg (Negative); Glucose Urine UA Norm (Normal); Ketones Urine 1+ (Negative); Leukocyte Esterase Urine Negative (Negative); Nitrate Urine Negative (Negative); Protein Urine Neg (Negative); RBC Urine 0-4 /hpf (0-2); Squamous Epithelial Cell Urine 15-25 /hpf (0-5); Urine Appearance Hazy (CLEAR); Urine Color Straw (Yellow); Urobilinogen Urine Norm (Negative); WBC Urine 0-4 /hpf (0-5); pH Urine 7 (5-7)
[2021-06-20 20:44] LABS: Alanine Aminotransferase 10 U/L (0-33); Albumin Level 5.3 g/dL (3.5-5.2); Alkaline Phosphatase 40 IU/L (35-105); Anion Gap 16.5 (5-19); Aspartate Amino Transferase 12 U/L (0-32); Blood Urea Nitrogen 14 mg/dL (6-20); Calcium 9.9 mg/dL (8.5-10.5); Carbon Dioxide 26 mmol/L (22-29); Chloride 100 mmol/L (98-107); Globulin 2.9 g/dL (1.3-4.6); Glomerular Filtration Rate 119.9 mL/min (90-130); Glucose 94 mg/dL (65-115); Lipase 32 U/L (13-60); Osmolality Calculated 288 mOsm/kg (285-295); Potassium 3.5 mmol/L (3.5-5.1); Sodium 139 mmol/L (136-145); Total Bilirubin 1.1 mg/dL (0.15-1.2); Total Protein 8.2 g/dL (6.6-8.7)
[2021-06-20] MEDS: lidocaine 2% viscous 15 ML, aluminum-mag hydrox-simethicon 30 ML, sucralfate oral liq 1 GM PO (20:50)
[2021-06-20] MEDS: sodium chloride 0.9% 1,000 ML 999 ML IV (20:51)
[2021-06-20 21:58] VITALS: BP 123/58; PULSE 92; RESP 14; O2SAT 99
--- NOTE | 2021-06-21 12:52 | DCPLANNER ---
equity manager had message to speak with patient about getting established with a primary care physician. equity manager spoke with patient, she stated that she sees Dr. Perez for primary care. Patient stated that she will schedule a follow up appointment if needed.
== END 2021-06-20 22:00 | disposition home or self-care (01) ==
PROVIDERS: Emergency Provider Emergency Medicine
DX: R10.9 Unspecified abdominal pain (principal)
CPT/HCPCS: 80053; 81001; 83690; 85025; 96360; 99283; J7030

== ENCOUNTER → 2021-08-31 18:20 | Outpatient (BNVA) | payer MEDICAID, SELFPAY | PROVIDERS: PCP Family Medicine Adult Medicine; Visit Provider Registered Nurse Neonatal Intensive Care | DX: N39.0 Urinary tract infection, site not specified (principal); Z20.2 Contact with and (suspected) exposure to infections with a predominantly sexual mode of transmission | CPT/HCPCS: 81000; 87491; 87591; 87661 ==

== ENCOUNTER → 2021-12-05 10:00 | Outpatient (BNVA) | payer MEDICAID, SELFPAY | PROVIDERS: PCP Family Medicine; Visit Provider Registered Nurse Neonatal Intensive Care | DX: N39.0 Urinary tract infection, site not specified (principal); Z20.2 Contact with and (suspected) exposure to infections with a predominantly sexual mode of transmission; R07.89 Other chest pain | CPT/HCPCS: 81000; 87491; 87591; 87661 ==

== ENCOUNTER → 2021-12-13 14:16 | Outpatient (BNVA) | payer MEDICAID, SELFPAY | PROVIDERS: PCP Family Medicine; Visit Provider Family Medicine | DX: N39.3 Stress incontinence (female) (male) (principal); R10.2 Pelvic and perineal pain | CPT/HCPCS: 81000; 81025; 87070; 87086; 87106; 87205 ==

== ENCOUNTER 2022-01-03 09:35 | Outpatient (CLI) | payer MEDICAID, SELFPAY ==
--- NOTE | 2022-01-03 09:45 | XRR_ITS ---
PROCEDURE INFORMATION: Exam: XR Chest Exam date and time: 01/03/2022 9:55 AM Age: 26 years old Clinical indication: Other: Unspecified; Patient HX: History--chronic chest pain on/off, worse last few days; Additional info: R07.9 - chest pain, unspecified TECHNIQUE: Imaging protocol: Radiologic exam of the chest. Views: 2 views. PA and Lateral COMPARISON: CT abdomen pelvis w con* [id number] 06/15/2021 1:27 PM FINDINGS: Lungs: Normal lung volumes. No interstitial or airspace opacities. Pleural spaces: No pleural effusion. No pneumothorax. Heart/Mediastinum: Normal heart size. Normal mediastinal contour. Midline trachea. Bones/joints: No acute abnormalities. XR/XR chest 2V* [id number] IMPRESSION: No chest radiographic evidence of acute cardiopulmonary disease.
--- NOTE | 2022-01-03 16:35 | XR_ITS ---
WS: [id number] Right hand, 3 views, 01/03/2022 Clinical Data: M25.50 - Pain in unspecified joint Comparison: None. Findings: No fractures or dislocations are seen. The soft tissues are unremarkable. The joint space s are normal No periarticular demineralization or calcifications are seen. XR/XR hand RT min 3V* [id number] Impression: Negative right hand.
--- NOTE | 2022-01-03 16:35 | XR_ITS ---
WS: [id number] Left hand, 3 views, 01/03/2022 Clinical Data: M25.50 - Pain in unspecified joint Comparison: None. Findings: No fractures or dislocations are seen. The soft tissues are unremarkable. The joint spaces are normal No periarticular demineralization or calcifications are seen. XR/XR hand LT min 3V* [id number] Impression: Negative left hand.
[2022-01-03 17:47] LABS: Thyroid Stimulating Hormone 2.39 uIU/mL (0.27-4.20)
== END 2022-01-03 09:36 | disposition home or self-care (01) ==
PROVIDERS: PCP Family Medicine; Visit Provider Internal Medicine Rheumatology
DX: R07.9 Chest pain, unspecified (principal); M25.50 Pain in unspecified joint; Z83.49 Family history of other endocrine, nutritional and metabolic diseases
CPT/HCPCS: 71046; 73130; 84439; 84443

== ENCOUNTER → 2022-01-12 12:11 | Outpatient (BNVA) | payer MEDICAID, SELFPAY | PROVIDERS: PCP Family Medicine; Visit Provider Family Medicine | DX: R07.89 Other chest pain (principal); A74.9 Chlamydial infection, unspecified | CPT/HCPCS: 87491; 87591; 87661 ==

== ENCOUNTER 2022-01-19 11:45 | Outpatient (CLI) | payer MEDICAID, SELFPAY ==
--- NOTE | 2022-01-19 11:45 | US_ITS ---
WS: [id number] TRANSABDOMINAL PELVIC AND TRANSVAGINAL PELVIC ULTRASOUND HISTORY: chronic pelvic pain COMPARISON: None available. Uterus: 7.6 cm x 4.3 cm x 3.4 cm. Normal size anteverted uterus. No fibroid or mass. Endometrium: 1.2 cm. Normal appearance of the endometrium. No increased vascularity. Junctional zone is well visualized. Right ovary: 3.6 cm x 2.7 cm x 3.3 cm. Small collapsing corpus luteum in the RIGHT ovary. No solid ma ss. Normal vascularity. Left ovary: 2.6 cm x 2.5 cm x 1.7 cm. Small follicles. Normal vascularity. No free fluid. US/US pelvic with transvaginal IMPRESSION: Normal pelvic ultrasound.
== END 2022-01-19 11:46 | disposition home or self-care (01) ==
LOC: RAD 11:45
PROVIDERS: PCP Family Medicine; Visit Provider Family Medicine
DX: R10.2 Pelvic and perineal pain (principal); G89.29 Other chronic pain
CPT/HCPCS: 76830; 76856

== ENCOUNTER 2022-02-25 16:55 | Emergency (ER) | payer MEDICAID, SELFPAY ==
[2022-02-25 17:00] VITALS: BP 144/98; PULSE 112; RESP 14; TEMP 36.6; O2SAT 99; BMI 20.9
--- NOTE | 2022-02-25 17:22 | PC.NURSE ---
pt reports abdominal cramping and vaginal bleeding that started within the last hour. describes blood as a brown color, denies any clots. reports blood is present when wiping or using restroom, states she has not gone through any pads since the beginning of the symptoms. reports nausea, denies vomiting, diarrhea, or fevers. Pt reports she took a home test today that was positive. LMP was 11/7. Reports this is her 4th . one previous miscarriage and two live births. reports one she had preeclampsia and required an emergency c section. reports pain is currently 8/10. pt currently sitting in bed, visitor at bedside. respirations even and unlabored. lung sounds clear bilat. bowel sounds present. skin pink/warm/dry.
--- NOTE | 2022-02-25 17:47 | W.ED.PREGNAN ---
HPI - General: Chief complaint: Vaginal Bleeding Stated complaint: 4wk preg, bleeding Time Seen by Provider: 02/25/22 17:19 History of Present Illness: Patient is a G 3P2 4-week 26-year-old female comes to the ED with cramping and vaginal bleeding. Patient's last menstrual period was on January 23. Approximately 1 to 2 hours ago today she started developing cramping and some vaginal bleeding. The bleeding is considered mild and she has not bled through a pad. She states that when she went to the bathroom here in the emergency department she did not even have any bleeding at that time. Her cramping pain is all throughout her lower abdomen and she rates it currently an 8 out of 10. Denies any fevers, chills, nausea/vomiting constipation, diarrhea, dysuria or hematuria.. Endorses fatigue. Associated symptoms: Deny abdominal pain, dysuria, headache(s), nausea or vomiting Related Data: : 4 Review of Systems Const: Denies: fever(s), chills or fatigue Eyes: Denies: change in vision or eye discomfort ENMT: Denies: throat pain, odynophagia, nasal discharge or nasal congestion Card: Denies: chest pain, palpitations, edema, swelling of feet/ankles, dyspnea on exertion or orthopnea Resp: Denies: dyspnea, productive cough or non-productive cough GI: Reports: GI cramping; Denies: abdominal pain, nausea, vomiting, diarrhea, constipation or hematochezia : Reports: vaginal bleeding (Light vaginal bleeding) and pelvic pain (Cramping); Denies: flank pain, dysuria or hematuria Musc: Denies: neck pain, back pain or extremity swelling Skin/Breast: Denies: rash or new lesions Neuro: Denies: headache(s), numbness in extremities or weakness in extremities PFSH ED PFSH: Medical History Allergic rhinitis due to allergen Follicular cyst of both ovaries LIZZY (generalized anxiety disorder) Left-sided chest wall pain Menorrhagia, premenopausal Pre-menstrual mood disorder Surgical History History of x 2 Social History Smoking and tobacco status: current every day smoker Female Reproductive History: : 4 Physical Exam Const: COMMON NORMALS: no acute distress, patient oriented x3, healthy appearing and alert GENERAL APPEARANCE: cooperative and comfortable HENMT: COMMON NORMALS: normocephalic HEAD & SCALP: normocephalic MOUTH: Normal oral and palatal mucosa present THROAT: posterior oropharynx normal and uvula midline Neck/C-Spine: COMMON NORMALS: supple GENERAL: Yes normal visual inspection Resp: COMMON NORMALS: normal respiratory effort, No retractions, No use of accessory muscles and clear to auscultation bilaterally AUSCULTATION: clear to auscultation bilaterally Cardio: COMMON NORMALS: regular rate, regular rhythm, S1 normal heart sound present, S2 normal heart sound present, No gallops present (Cardio), No clicks present (Cardio), No murmurs present (Cardio) and Peripheral pulses 2+ throughout RATE: regular rate RHYTHM: regular rhythm HEART SOUNDS: S1 normal heart sound present and S2 normal heart sound present PERIPHERAL PULSES: Peripheral pulses 2+ throughout GI: COMMON NORMALS: Normal to inspection, nondistended, normoactive bowel sounds present, Soft to palpation and no masses PALPATION: Yes Soft to palpation OTHER: Mild tenderness throughout the lower abdomen and pelvis. : COMMON NORMALS: Yes no CVA tenderness BLADDER/KIDNEY EXAM: Yes no CVA tenderness Back/Pelvis: COMMON NORMALS: no CVA tenderness Extremity: COMMON NORMALS: normal to inspection Neuro: COMMON NORMALS: patient oriented x3 SENSORIUM/ORIENTATION: Yes alert GAIT: Yes Normal gait present Skin: GENERAL SKIN EXAM: dry skin Course Vital Signs: Vital signs: Vital Signs Temperature 97.9 F 02/25/22 17:00 Pulse Rate 98 02/25/22 19:51 Respiratory Rate 14 02/25/22 19:51 Blood Pressure 144/98 02/25/22 17:00 Pulse Oximetry 99 02/25/22 19:51 Oxygen Delivery Me thod 02/25/22 17:00 MDM - OB/Uterine Contractions Medical Decision Making Patient is a 4-week 26-year-old female comes to the ED with cramping and vaginal bleeding. Patient says her bleeding is mild and she has not bled through a pad and over the past couple hours. She says here in the ED she is not having any current bleeding. Denies any vomiting, fevers. Vitals are stable. Patient appears nontoxic in no acute distress or pain. She has some mild tenderness to the lower abdomen/pelvis. Rest of exam is benign. CBC, UA and CMP were unremarkable. Rh+. hCG quant was 17. Ultrasound of the pelvis showed no visible intrauterine and no visible ectopic. Patient was stable for discharge home and diagnosed with a threatened miscarriage. Recommended follow-up with OB doctor to get beta-hCG level rechecked in the next 2 to 3 days. Strict return to ED precautions given. Patient understood and agreed with plan. Lab Data I reviewed the patient's lab results. 02/25/22 17:35 02/25/22 17:35 Radiology Impressions Obstetrics Ultrasound 02/25/22 17:53 IMPRESSION: 1. No visible intrauterine . This could be a viable which is not visible due to early gestational age. 2. No visible ectopic. Recommend continued follow-up beta hCG and repeat ultrasound if necessary to exclude ectopic . Laboratory Results WBC 6.8 10^3/uL (4.0-10.0) 02/25/22 17:35 RBC 3.95 10^6/uL (4.1-5.3) L 02/25/22 17:35 Hgb 11.7 g/dL (11.5-15.3) 02/25/22 17:35 Hct 36.1 % (37.0-47.0) L 02/25/22 17:35 MCV 91.4 fl (81-99) 02/25/22 17:35 MCH 29.6 pg (28.0-34.0) 02/25/22 17:35 MCHC 32.4 g/dL (30.0-36.0) 02/25/22 17:35 RDW 12.7 % (12.1-15.1) 02/25/22 17:35 Plt Count 334 10^3/cmm (130-400) 02/25/22 17:35 MPV 9.5 fL (7.4-10.4) 02/25/22 17:35 Neut % (Auto) 59.1 % 02/25/22 17:35 Lymph % (Auto) 34.0 % 02/25/22 17:35 [place] % (Auto) 5.7 % 02/25/22 17:35 Eos % (Auto) 0.6 % 02/25/22 17:35 Baso % (Auto) 0.3 % 02/25/22 17:35 Neut # (Auto) 4.02 10^3/uL (1.8-7.7) 02/25/22 17:35 Lymph # (Auto) 2.3 10^3/uL (0.8-4.8) 02/25/22 17:35 [place] # (Auto) 0.4 10^3/uL (0.2-0.9) 02/25/22 17:35 Eos # (Auto) 0.0 10^3/uL (0.0-0.8) 02/25/22 17:35 Baso # (Auto) 0.0 10^3/uL (0.0-0.1) 02/25/22 17:35 Nucleated RBC % (auto) 0 % 02/25/22 17:35 Nucleated RBCs # 0.0 /100WBC 02/25/22 17:35 Sodium 136 mmol/L (136-145) 02/25/22 17:35 Potassium 3.7 mmol/L (3.5-5.1) 02/25/22 17:35 Chloride 104 mmol/L (98-107) 02/25/22 17:35 Carbon Dioxide 21 mmol/L (22-29) L 02/25/22 17:35 Anion Gap 14.7 (5-19) 02/25/22 17:35 BUN 12 mg/dL (6-20) 02/25/22 17:35 Creatinine 0.5 mg/dL (0.5-0.9) 02/25/22 17:35 GFR Calculation 148.0 mL/min (90-130) H 02/25/22 17:35 Glucose 89 mg/dL (65-115) 02/25/22 17:35 Calculated Osmolality 281 mOsm/kg (285-295) L 02/25/22 17:35 Calcium 9.0 mg/dL (8.5-10.5) 02/25/22 17:35 Total Bilirubin 1.6 mg/dL (0.15-1.2) H 02/25/22 17:35 AST 12 U/L (0-32) 02/25/22 17:35 ALT 9 U/L (0-33) 02/25/22 17:35 Alkaline Phosphatase 36 U/L (35-105) 02/25/22 17:35 Total Protein 7.3 g/dL (6.6-8.7) 02/25/22 17:35 Albumin 4.4 g/dL (3.5-5.2) 02/25/22 17:35 Globulin 2.9 g/dL (1.3-4.6) 02/25/22 17:35 Ser , Semi-Qnt 17.12 mIU/mL 02/25/22 17:35 Urine Color Straw (Yellow) 02/25/22 17:45 Urine Appearance Clear (CLEAR) 02/25/22 17:45 Urine pH 5 (5-7) 02/25/22 17:45 Ur Specific [place] 1.015 (1.005-1.030) 02/25/22 17:45 Urine Protein Neg (Negative) 02/25/22 17:45 Urine Glucose (UA) Norm (Normal) 02/25/22 17:45 Urine Ketones 2+ (Negative) H 02/25/22 17:45 Urine Blood 3+ (Negative) H 02/25/22 17:45 Urine Nitrate Negative (Negative) 02/25/22 17:45 Urine Bilirubin Neg (Negative) 02/25/22 17:45 Urine Urobilinogen Norm mg/dL (Negative) 02/25/22 17:45 Ur Leukocyte Esterase Negative (Negative) 02/25/22 17:45 Urine RBC 0-4 /hpf (0-2) H 02/25/22 17:45 Urine WBC 0-4 /hpf (0-5) H 02/25/22 17:45 Ur Squamous Epith Cells 0-4 /hpf (0-5) H 02/25/22 17:45 Amorphous Sediment Not Reportable 02/25/22 17:45 Urine Bacteria 1+ /hpf (NONE) H 02/25/22 17:45 Urine Mucus 1+ /hpf 02/25/22 17:45 Blood Type A Positive 02/25/22 17:35 Rho(D) Type Positive 02/25/22 17:35 Discharge Plan Discharge Patient Disposition: Home Clinical Impression: Threatened miscarriage in early Condition: Stable Prescriptions: No Action naproxen [Naprosyn] 500 mg tablet 500 mg PO BID PRN (Reason: pain) Qty: 60 0RF Rx Instructions: Take with food acetaminophen 650 mg tablet extended release 650 mg PO Q8H PRN (Reason: fever or pain) Qty: 90 0RF fluticasone propionate 50 mcg/actuation spray,suspension 2 spray intranasal BID Qty: 16 4RF Rx Instructions: administer into each nostril loratadine 10 mg tablet 10 mg PO DAILY PRN (Reason: allergy symptoms) Qty: 30 1RF ondansetron 4 mg tablet,disintegrating 4 mg PO Q8H PRN (Reason: nausea and vomiting) Qty: 10 0RF amitriptyline 25 mg tablet 25 mg PO .po q hs Qty: 30 0RF albuterol sulfate [ProAir HFA] 90 mcg/actuation Hfa Aerosol Inhaler 2 puff INHALATION QID PRN (Reason: Shortness Of Breath) Discharge Orders: Discharge ED (Routine); Ordered 02/25/22 Ordered By: Jer Howell Referrals: Merced Rg DO [Primary Care Provider] - Discharge Diet: Regular Discharge Activity: Increase activity as tolerated Patient Instructions: Threatened Miscarriage (ED) Activity Restrictions/Additional Instructions: Follow-up with PCP or OB doctor next 2 to 3 days to be reevaluated and have your hCG quant level rechecked. Return to the ER or your medical provider if condition worsens. Please read and understand discharge instructions. Thank you for choosing [facility] for your healthcare needs today. Please realize this is an emergency room and that we are providing you with a medical screening exam and this may not be complete and all inclusive of all the testing and or work up that you may need to determine your ailment or severity of your illness. It is very important that you follow up as instructed or that you return to the Emergency Department should you have concerns or if your condition changes or worsens in any way. Coding Level of Care Code ED Splicing Machine Operator for Sylvie Fwd Exam Comprehensive
[2022-02-25 17:53] LABS: Basophils % 0.3 %; Eosinophils % 0.6 %; Hematocrit 36.1 % (37.0-47.0); Hemoglobin 11.7 g/dL (11.5-15.3); Lymphocytes # 2.3 10^3/uL (0.8-4.8); Mean Corpuscular HGB Conc 32.4 g/dL (30.0-36.0); Mean Corpuscular Hemoglobin 29.6 pg (28.0-34.0); Mean Corpuscular Volume 91.4 fl (81-99); Mean Platelet Volume 9.5 fL (7.4-10.4); Monocytes # 0.4 10^3/uL (0.2-0.9); Monocytes % 5.7 %; Neutrophils # 4.02 10^3/uL (1.8-7.7); Neutrophils % 59.1 %; Nucleated Red Blood Cells % 0 %; Platelet Count 334 10^3/cmm (130-400); Red Blood Count 3.95 10^6/uL (4.1-5.3); Red Cell Distribution Width 12.7 % (12.1-15.1); White Blood Count 6.8 10^3/uL (4.0-10.0)
--- NOTE | 2022-02-25 17:53 | USR_ITS ---
PROCEDURE INFORMATION: Exam: US , Limited and US , Transvaginal Exam date and time: 02/25/2022 6:16 PM Age: 26 years old Clinical indication: Lmp or gestational age (in weeks): 4w 5 days; Other: Bleeding; ; Additional info: 4 weeks and bleeding LABS AND CLINICAL REPORTS: Serum Choriogonadotropin (HCG): 17 mIU/mL Last menstrual period start date: 01/23/2022 Gestational age (Established): 4 w 5 d Estimated due date (Established): 10/30/2022 TECHNIQUE: Imaging protocol: Real-time ultrasound of the maternal uterus with image documentation. Transvaginal imaging was used for better evaluation of the fetus, adnexa, and/or cervix. Exam focused on the clinical indication. COMPARISON: US pelvic with transvaginal 01/19/2022 12:05 PM FINDINGS: Gestation: There is no intrauterine gestational sac. MATERNAL: Uterus: The uterus is anteverted. Contours are normal. The uterus measures 8.0 x 4.6 x 3.8 cm. The endometrium is homogenous. Endometrial stripe thickness measures 5 mm. Right ovary/adnexa: Right ovary measures 3.4 cm x 2.8 cm x 2.1 cm. Right ovarian volume is 10.3 mL. The right ovary is morphologically normal. There is normal blood flow in the right ovary. Left ovary/adnexa: Left ovary measures 2.6 cm x 2.5 cm x 1.5 cm. Left ovarian volume is 5.1 mL. The left ovary is morphologically normal. There is normal blood flow in the left ovary. Intraperitoneal space: No pelvic free fluid. US/US OB lmt with transvaginal IMPRESSION: 1. No visible intrauterine . This could be a viable which is not visible due to early gestational age. 2. No visible ectopic. Recommend continued follow-up beta hCG and repeat ultrasound if necessary to exclude ectopic .
[2022-02-25 17:55] LABS: Add Urine Microscopic? YES; Bilirubin Urine Neg (Negative); Blood Urine 3+ (Negative); Glucose Urine UA Norm (Normal); Ketones Urine 2+ (Negative); Leukocyte Esterase Urine Negative (Negative); Nitrate Urine Negative (Negative); Protein Urine Neg (Negative); Specific Gravity, Urine 1.015 (1.005-1.030); Urine Appearance Clear (CLEAR); Urine Color Straw (Yellow); Urobilinogen Urine Norm (Negative); pH Urine 5 (5-7)
[2022-02-25 17:57] LABS: Add Urine Culture? No; Bacteria Urine 1+ /hpf; Mucus Urine 1+ /hpf; RBC Urine 0-4 /hpf (0-2); Squamous Epithelial Cell Urine 0-4 /hpf (0-5); WBC Urine 0-4 /hpf (0-5)
[2022-02-25 18:18] LABS: HCG Quantitative 17.12 mIU/mL
[2022-02-25 18:30] LABS: Alanine Aminotransferase 9 U/L (0-33); Albumin Level 4.4 g/dL (3.5-5.2); Alkaline Phosphatase 36 U/L (35-105); Anion Gap 14.7 (5-19); Aspartate Amino Transferase 12 U/L (0-32); Blood Urea Nitrogen 12 mg/dL (6-20); Carbon Dioxide 21 mmol/L (22-29); Chloride 104 mmol/L (98-107); Globulin 2.9 g/dL (1.3-4.6); Glucose 89 mg/dL (65-115); Osmolality Calculated 281 mOsm/kg (285-295); Potassium 3.7 mmol/L (3.5-5.1); Sodium 136 mmol/L (136-145); Total Bilirubin 1.6 mg/dL (0.15-1.2); Total Protein 7.3 g/dL (6.6-8.7)
--- NOTE | 2022-02-25 19:37 | PC.NURSE ---
report given to HEBER Viera to assume care
[2022-02-25 19:51] VITALS: PULSE 98; RESP 14; O2SAT 99
== END 2022-02-25 19:51 | disposition home or self-care (01) ==
PROVIDERS: Emergency Provider Physician Assistant; PCP Family Medicine
DX: O20.0 Threatened abortion (principal); Z3A.01 Less than 8 weeks gestation of pregnancy; O99.331 Smoking (tobacco) complicating pregnancy, first trimester; F17.210 Nicotine dependence, cigarettes, uncomplicated
CPT/HCPCS: 76815; 76817; 80053; 81001; 84702; 85025; 86900; 99284

== ENCOUNTER 2022-02-26 20:39 | Emergency (ER) | payer MEDICAID, SELFPAY ==
[2022-02-26 20:48] VITALS: BP 126/84; PULSE 91; RESP 26; TEMP 36.8; O2SAT 97; BMI 19.5
[2022-02-26 21:14] LABS: Basophils # 0.1 10^3/uL (0.0-0.1); Basophils % 0.5 %; Eosinophils % 0.3 %; Hematocrit 37.7 % (37.0-47.0); Hemoglobin 12.6 g/dL (11.5-15.3); Lymphocytes # 3.2 10^3/uL (0.8-4.8); Lymphocytes % 33.7 %; Mean Corpuscular HGB Conc 33.4 g/dL (30.0-36.0); Mean Corpuscular Hemoglobin 29.4 pg (28.0-34.0); Mean Corpuscular Volume 87.9 fl (81-99); Mean Platelet Volume 9.4 fL (7.4-10.4); Monocytes # 0.5 10^3/uL (0.2-0.9); Monocytes % 5.4 %; Neutrophils # 5.59 10^3/uL (1.8-7.7); Neutrophils % 59.8 %; Nucleated Red Blood Cells % 0 %; Platelet Count 408 10^3/cmm (130-400); Red Blood Count 4.29 10^6/uL (4.1-5.3); Red Cell Distribution Width 12.7 % (12.1-15.1); White Blood Count 9.4 10^3/uL (4.0-10.0)
[2022-02-26] MEDS: sodium chloride 0.9% 1,000 ML 999 ML IV ×2 (21:19→23:16)
[2022-02-26] MEDS: fentaNYL 50 mcg/mL INJ 2mL IVP (21:19)
[2022-02-26] MEDS: ondansetron 2 mg/ML SDV 2 mL 4 MG IVP (21:19)
[2022-02-26 21:20] VITALS: BP 117/85; PULSE 112; RESP 20; O2SAT 99
[2022-02-26 21:32] LABS: INR 1.03 (0.8-1.2); Partial Thromboplastin Time 26.7 SECONDS (23.9-36.7)
[2022-02-26 21:44] LABS: HCG Quantitative 41.88 mIU/mL
--- NOTE | 2022-02-26 21:46 | ED_ITS ---
HPI - Female Genitourinary General: Chief complaint: Vaginal Bleeding Stated complaint: Pain\Vaginal Bleeding/near syncopal Time Seen by Provider: 02/26/22 20:54 Source: patient and family History of Present Illness: 26-year-old female G3, P2 4 weeks . She was seen last night for vaginal bleeding. Ultrasound at that point revealed no intrauterine . Her beta hCG was 17. She has had worsening pain with continued vaginal bleeding today. She has continued to bleed. She notes bleeding became more heavily along with pain increase. She denies fever. The patient evidently had a near syncopal episode. She holds her abdomen in pain an d sits at the edge of the bed. MD elicited complaint: vaginal bleeding, pelvic pain and possible miscarriage Onset (ago): hour(s) Location of symptoms: pelvis Severity: severe Female Urogenital Radiation: Non-Radiating Quality of pain: cramping Consistency: progressively worsening Vaginal discharge: none Vaginal bleeding: moderate Relieving factors: none Associated symptoms: Reports abdominal pain, nausea and vaginal bleeding; Deny short of breath or fevers/chills Review of Systems Const: Denies: fever(s) Card: Denies: chest pain Resp: Denies: dyspnea GI: Reports: abdominal pain and nausea : Reports: vaginal bleeding PFS ED PFSH: Medical History Allergic rhinitis due to allergen Follicular cyst of both ovaries LIZZY (generalized anxiety disorder) Left-sided chest wall pain Menorrhagia, premenopausal Pre-menstrual mood disorder Surgical History History of x 2 Social History Smoking and tobacco status: current every day smoker Physical Exam Const: GENERAL APPEARANCE: cooperative, in distress, anxious and ill appearing (Mildly) HENMT: COMMON NORMALS: normocephalic and Normal external nose present HEAD & SCALP: normocephalic FACE & SINUS: normal facial exam and face symmetric NOSE: Normal external nose present Eye: COMMON NORMALS: Equal, round and reactive pupils present and EOMs intact bilaterally PUPIL: Yes Equal, round and reactive pupils present Chest: CHEST: Yes Symmetrical chest wall rise Resp: COMMON NORMALS: normal respiratory effort, No use of accessory muscles and clear to auscultation bilaterally AUSCULTATION: clear to auscultation bilaterally Cardio: COMMON NORMALS: regular rate and regular rhythm RATE: regular rate RHYTHM: regular rhythm GI: COMMON NORMALS: Normal to inspection, nondistended, normoactive bowel sounds present PALPATION: Yes Tenderness to palpation present (GI) (Pelvic) : SPECULUM EXAM - VAGINA: Yes vaginal bleeding OB/EXTERNAL & SPECULUM: vaginal bleeding Extremity: GENERAL: No edema Neuro: KATHLEEN COMA SCALE: document GCS findings Kathleen coma scale eye opening: Spontaneous [place] coma scale verbal response: Orientated [place] coma scale motor response: Obey commands [place] coma scale total score: 15 Course Consultations: Consultation #1: [place] Vital Signs: Vital signs: Vital Signs Temperature 98.2 F 02/26/22 20:48 Pulse Rate 72 02/27/22 01:00 Respiratory Rate 16 02/27/22 01:00 Blood Pressure 115/74 02/27/22 01:00 Pulse Oximetry 100 02/27/22 01:00 Oxygen Delivery Me thod 02/26/22 21:20 [facility] - Female Medical Decision Making Patient had a syncopal episode shortly after administration of fentanyl for pain. Her pain was quite severe at the time. Her vitals remained stable through the episode. Her saturations currently 100%, blood pressure 122/73. She is recovering. Her hemoglobin is 12.6 which is actually increased from her CBC yesterday. Her hCG is increased as well at 41 today. Patient's pain is improved, but is taken several doses of morphine. She has had 2 L of fluid as well. No significant vaginal bleeding here. Her hemoglobin is 12.6. On exam, her cervix is closed. Only scant older appearing blood in the cervical os. No tissue. Ultrasound last night failed to reveal a IUP. I spoke with gynecology. Of note is the significantly low serum hCG such that this is only days old. The fact that it doubled over 24 hours is encouraging. It also speaks against an ectopic . She will need close outpatient follow-up with repeat hemoglobin and hCG testing. She was encouraged to do this. Otherwise hydration, pelvic rest, which was explained to the patient, and pain control. Lab Data 02/26/22 21:08 02/26/22 21:08 Laboratory Results WBC 9.4 10^3/uL (4.0-10.0) 02/26/22 21:08 RBC 4.29 10^6/uL (4.1-5.3) 02/26/22 21:08 Hgb 12.6 g/dL (11.5-15.3) 02/26/22 21:08 Hct 37.7 % (37.0-47.0) 02/26/22 21:08 MCV 87.9 fl (81-99) 02/26/22 21:08 MCH 29.4 pg (28.0-34.0) 02/26/22 21:08 MCHC 33.4 g/dL (30.0-36.0) 02/26/22 21:08 RDW 12.7 % (12.1-15.1) 02/26/22 21:08 Plt Count 408 10^3/cmm (130-400) H 02/26/22 21:08 MPV 9.4 fL (7.4-10.4) 02/26/22 21:08 Neut % (Auto) 59.8 % 02/26/22 21:08 Lymph % (Auto) 33.7 % 02/26/22 21:08 [place] % (Auto) 5.4 % 02/26/22 21:08 Eos % (Auto) 0.3 % 02/26/22 21:08 Baso % (Auto) 0.5 % 02/26/22 21:08 Neut # (Auto) 5.59 10^3/uL (1.8-7.7) 02/26/22 21:08 Lymph # (Auto) 3.2 10^3/uL (0.8-4.8) 02/26/22 21:08 [place] # (Auto) 0.5 10^3/uL (0.2-0.9) 02/26/22 21:08 Eos # (Auto) 0.0 10^3/uL (0.0-0.8) 02/26/22 21:08 Baso # (Auto) 0.1 10^3/uL (0.0-0.1) 02/26/22 21:08 Nucleated RBC % (auto) 0 % 02/26/22 21:08 Nucleated RBCs # 0.0 /100WBC 02/26/22 21:08 PT 13.80 SECONDS (12.1-14.9) 12/11/22 21:08 INR 1.03 (0.8-1.2) 02/26/22 21:08 APTT 26.7 SECONDS (23.9-36.7) 02/26/22 21:08 Sodium 135 mmol/L (136-145) L 02/26/22 21:08 Potassium 3.3 mmol/L (3.5-5.1) L 02/26/22 21:08 Chloride 101 mmol/L (98-107) 02/26/22 21:08 Carbon Dioxide 19 mmol/L (22-29) L 02/26/22 21:08 Anion Gap 18.3 (5-19) 02/26/22 21:08 BUN 11 mg/dL (6-20) 02/26/22 21:08 Creatinine 0.6 mg/dL (0.5-0.9) 02/26/22 21:08 GFR Calculation 119.9 mL/min (90-130) 02/26/22 21:08 Glucose 123 mg/dL (65-115) H 02/26/22 21:08 Calculated Osmolality 281 mOsm/kg (285-295) L 02/26/22 21:08 Calcium 9.6 mg/dL (8.5-10.5) 02/26/22 21:08 Total Bilirubin 1.5 mg/dL (0.15-1.2) H 02/26/22 21:08 AST 12 U/L (0-32) 02/26/22 21:08 ALT 10 U/L (0-33) 02/26/22 21:08 Alkaline Phosphatase 41 U/L (35-105) 02/26/22 21:08 C-Reactive Protein 3.0 mg/L (0.0-4.9) 02/26/22 21:08 Total Protein 7.8 g/dL (6.6-8.7) 02/26/22 21:08 Albumin 4.9 g/dL (3.5-5.2) 02/26/22 21:08 Globulin 2.9 g/dL (1.3-4.6) 02/26/22 21:08 Ser , Semi-Qnt 41.88 mIU/mL 02/26/22 21:08 Urine Color Yellow (Yellow) 02/26/22 21:55 Urine Appearance Clear (CLEAR) 02/26/22 21:55 Urine pH 5 (5-7) 02/26/22 21:55 Ur Specific [place] 1.015 (1.005-1.030) 02/26/22 21:55 Urine Protein Neg (Negative) 02/26/22 21:55 Urine Glucose (UA) Norm (Normal) 02/26/22 21:55 Urine Ketones Negative (Negative) 02/26/22 21:55 Urine Blood 3+ (Negative) H 02/26/22 21:55 Urine Nitrate Negative (Negative) 02/26/22 21:55 Urine Bilirubin Neg (Negative) 02/26/22 21:55 Urine Urobilinogen Neg mg/dL (Negative) 02/26/22 21:55 Ur Leukocyte Esterase Negative (Negative) 02/26/22 21:55 Urine RBC 0-4 /hpf (0-2) H 02/26/22 21:55 Urine WBC 0-4 /hpf (0-5) H 02/26/22 21:55 Ur Squamous Epith Cells 5-10 /hpf (0-5) H 02/26/22 21:55 Amorphous Sediment Not Reportable 02/26/22 21:55 Urine Bacteria Trace /hpf (NONE) 02/26/22 21:55 Urine Mucus 1+ /hpf 02/26/22 21:55 Discharge Plan Discharge Patient Disposition: Home Clinical Impression: Threatened miscarriage in early , Vaginal bleeding Condition: Stable Prescriptions: New Percocet 7.5-325 mg tablet 1 tab PO Q6H PRN (Reason: pain) Qty: 10 0RF Continued ondansetron 4 mg tablet,disintegrating 4 mg PO Q8H PRN (Reason: nausea and vomiting) Qty: 10 0RF No Action naproxen [Naprosyn] 500 mg tablet 500 mg PO BID PRN (Reason: pain) Qty: 60 0RF Rx Instructions: Take with food acetaminophen 650 mg tablet extended release 650 mg PO Q8H PRN (Reason: fever or pain) Qty: 90 0RF fluticasone propionate 50 mcg/actuation spray,suspension 2 spray intranasal BID Qty: 16 4RF Rx Instructions: administer into each nostril loratadine 10 mg tablet 10 mg PO DAILY PRN (Reason: allergy symptoms) Qty: 30 1RF amitriptyline 25 mg tablet 25 mg PO .po q hs Qty: 30 0RF albuterol sulfate [ProAir HFA] 90 mcg/actuation Hfa Aerosol Inhaler 2 puff INHALATION QID PRN (Reason: Shortness Of Breath) Discharge Orders: Discharge ED (Routine); Ordered 02/27/22 Ordered By: Kevyn Peck Referrals: Homar Ch MD [Physician] - 1-3 days [place] Rg DO [Primary Care Provider] - Patient Instructions: Threatened Miscarriage (ED), Opioid Safety, Pain Management Activity Restrictions/Additional Instructions: Call the women's health clinic later this morning. Let them know you were seen in the ER with a threatened miscarriage. Return to the ER for worsening vaginal bleeding, soaking 1 pad per hour for more than 3 hours, fever greater than 100, repetitive syncope or passing out, other concerning symptoms. Treat pain accordingly. They will likely want you to have your blood drawn on Sunday to repeat your blood count as well as possibly your serum test. Coding Level of Care Code ED Art Conservator for Chg Fwd Exam Comprehensive
[2022-02-26 21:56] LABS: Alanine Aminotransferase 10 U/L (0-33); Albumin Level 4.9 g/dL (3.5-5.2); Alkaline Phosphatase 41 U/L (35-105); Anion Gap 18.3 (5-19); Aspartate Amino Transferase 12 U/L (0-32); Blood Urea Nitrogen 11 mg/dL (6-20); Calcium 9.6 mg/dL (8.5-10.5); Carbon Dioxide 19 mmol/L (22-29); Chloride 101 mmol/L (98-107); Globulin 2.9 g/dL (1.3-4.6); Glomerular Filtration Rate 119.9 mL/min (90-130); Glucose 123 mg/dL (65-115); Osmolality Calculated 281 mOsm/kg (285-295); Potassium 3.3 mmol/L (3.5-5.1); Sodium 135 mmol/L (136-145); Total Bilirubin 1.5 mg/dL (0.15-1.2); Total Protein 7.8 g/dL (6.6-8.7)
[2022-02-26 22:06] VITALS: BP 97/73; PULSE 74; RESP 16; O2SAT 98
[2022-02-26 22:32] LABS: Add Urine Microscopic? YES; Bilirubin Urine Neg (Negative); Blood Urine 3+ (Negative); Glucose Urine UA Norm (Normal); Ketones Urine Negative (Negative); Leukocyte Esterase Urine Negative (Negative); Nitrate Urine Negative (Negative); Protein Urine Neg (Negative); Specific Gravity, Urine 1.015 (1.005-1.030); Urine Appearance Clear (CLEAR); Urine Color Yellow (Yellow); Urobilinogen Urine Neg (Negative); pH Urine 5 (5-7)
[2022-02-26] MEDS: morphine 4 mg/mL SDV 1 mL IVP ×2 (22:34→23:39)
[2022-02-26] MEDS: LORazepam 2 mg/mL INJ 1 mL 0.5 MG IVP (22:34)
[2022-02-26 22:37] LABS: RBC Urine 0-4 /hpf (0-2)
[2022-02-26 22:38] LABS: Add Urine Culture? No; Bacteria Urine TRACE /hpf; Mucus Urine 1+ /hpf; WBC Urine 0-4 /hpf (0-5)
[2022-02-26 23:34] VITALS: BP 127/81; PULSE 72; RESP 16; O2SAT 100
[2022-02-27] VITALS: BP 114/80; PULSE 76; RESP 18; O2SAT 100
[2022-02-27 00:30] VITALS: BP 105/65; PULSE 59; RESP 16; O2SAT 100
[2022-02-27] MEDS: oxyCODONE-APAP 5-325 mg Tablet 1 TAB PO (00:59)
[2022-02-27] MEDS: morphine 4 mg/mL SDV 1 mL IVP (00:59)
[2022-02-27 01:00] VITALS: BP 115/74; PULSE 72; RESP 16; O2SAT 100
== END 2022-02-27 01:14 | disposition home or self-care (01) ==
PROVIDERS: Emergency Provider Emergency Medicine; PCP Family Medicine
DX: O20.0 Threatened abortion (principal); Z3A.01 Less than 8 weeks gestation of pregnancy; O99.331 Smoking (tobacco) complicating pregnancy, first trimester; F17.210 Nicotine dependence, cigarettes, uncomplicated
CPT/HCPCS: 80053; 81001; 84702; 85025; 85610; 85730; 86140; 96361; 96374; 96375; 96376; 99284; J2060; J2270; J2405; J3010; J7030

== ENCOUNTER → 2022-02-28 08:42 | Outpatient (BNVA) | payer MEDICAID, SELFPAY | PROVIDERS: PCP Family Medicine; Visit Provider Obstetrics & Gynecology | DX: O20.0 Threatened abortion (principal); Z3A.00 Weeks of gestation of pregnancy not specified | CPT/HCPCS: 84702 ==

== ENCOUNTER → 2022-03-02 09:00 | Outpatient (BNVA) | payer MEDICAID, SELFPAY | PROVIDERS: PCP Family Medicine; Visit Provider Obstetrics & Gynecology | DX: O20.0 Threatened abortion (principal); N93.9 Abnormal uterine and vaginal bleeding, unspecified; R10.2 Pelvic and perineal pain | CPT/HCPCS: 84702; 85025 ==

== ENCOUNTER 2022-03-14 12:41 | Outpatient (CLI) | payer MEDICAID, SELFPAY ==
[2022-03-14 13:12] LABS: Basophils % 0.3 %; Eosinophils # 0.1 10^3/uL (0.0-0.8); Eosinophils % 1.2 %; Hematocrit 36.1 % (37.0-47.0); Hemoglobin 11.9 g/dL (11.5-15.3); Lymphocytes # 1.9 10^3/uL (0.8-4.8); Lymphocytes % 32.2 %; Mean Corpuscular Hemoglobin 30.2 pg (28.0-34.0); Mean Corpuscular Volume 91.6 fl (81-99); Mean Platelet Volume 9.6 fL (7.4-10.4); Monocytes # 0.4 10^3/uL (0.2-0.9); Monocytes % 6.4 %; Neutrophils # 3.47 10^3/uL (1.8-7.7); Neutrophils % 59.7 %; Nucleated Red Blood Cells % 0 %; Platelet Count 335 10^3/cmm (130-400); Red Blood Count 3.94 10^6/uL (4.1-5.3); Red Cell Distribution Width 12.8 % (12.1-15.1); White Blood Count 5.8 10^3/uL (4.0-10.0)
== END 2022-03-14 12:42 | disposition home or self-care (01) ==
LOC: LAB 12:44
PROVIDERS: Obstetrics & Gynecology; PCP Family Medicine; Visit Provider Nurse Practitioner
DX: N93.9 Abnormal uterine and vaginal bleeding, unspecified (principal); R10.2 Pelvic and perineal pain; O20.0 Threatened abortion; O36.80X0 Pregnancy with inconclusive fetal viability, not applicable or unspecified
CPT/HCPCS: 36415; 84702; 85025

== ENCOUNTER → 2022-04-10 12:50 | Outpatient (BNVA) | payer MEDICAID, SELFPAY | PROVIDERS: PCP Family Medicine; Visit Provider Obstetrics & Gynecology | DX: Z32.00 Encounter for pregnancy test, result unknown (principal); R10.2 Pelvic and perineal pain; Z98.891 History of uterine scar from previous surgery | CPT/HCPCS: 84702 ==

== ENCOUNTER → 2022-04-25 12:31 | Outpatient (BNVA) | payer MEDICAID, SELFPAY | PROVIDERS: PCP Family Medicine; Visit Provider Obstetrics & Gynecology | DX: R10.2 Pelvic and perineal pain (principal) | CPT/HCPCS: 76830 ==

== ENCOUNTER 2022-05-12 12:19 | Outpatient (CLI) | payer MEDICAID, SELFPAY ==
[2022-05-12 12:54] LABS: Basophils % 0.5 %; Eosinophils # 0.1 10^3/uL (0.0-0.8); Eosinophils % 2.4 %; Hematocrit 36.1 % (37.0-47.0); Hemoglobin 11.3 g/dL (11.5-15.3); Lymphocytes % 34.6 %; Mean Corpuscular HGB Conc 31.3 g/dL (30.0-36.0); Mean Corpuscular Hemoglobin 28.8 pg (28.0-34.0); Mean Corpuscular Volume 92.1 fl (81-99); Mean Platelet Volume 9.1 fL (7.4-10.4); Monocytes # 0.3 10^3/uL (0.2-0.9); Monocytes % 5.6 %; Neutrophils # 3.35 10^3/uL (1.8-7.7); Neutrophils % 56.7 %; Nucleated Red Blood Cells % 0 %; Platelet Count 234 10^3/cmm (130-400); Red Blood Count 3.92 10^6/uL (4.1-5.3); Red Cell Distribution Width 13.2 % (12.1-15.1); White Blood Count 5.9 10^3/uL (4.0-10.0)
[2022-05-12 13:22] LABS: Alanine Aminotransferase 8 U/L (0-33); Albumin Level 4.6 g/dL (3.5-5.2); Alkaline Phosphatase 39 U/L (35-105); Aspartate Amino Transferase 11 U/L (0-32); Erythrocyte Sedimentation Rate < 1 mm/hr (0-15); Globulin 2.2 g/dL (1.3-4.6); Glomerular Filtration Rate 190.1 mL/min (90-130); Magnesium 1.9 mg/dL (1.7-2.3); Potassium 3.9 mmol/L (3.5-5.1); Total Bilirubin 0.6 mg/dL (0.15-1.2); Total Protein 6.8 g/dL (6.6-8.7)
== END 2022-05-12 12:20 | disposition home or self-care (01) ==
PROVIDERS: PCP Family Medicine; Visit Provider Internal Medicine Rheumatology
DX: M25.50 Pain in unspecified joint (principal); Z87.39 Personal history of other diseases of the musculoskeletal system and connective tissue
CPT/HCPCS: 36415; 80076; 82310; 82565; 83735; 84132; 85025; 85651; 86140

== ENCOUNTER → 2022-07-19 16:28 | Outpatient (BNVA) | payer MEDICAID, SELFPAY | PROVIDERS: PCP Family Medicine; Visit Provider Obstetrics & Gynecology | DX: N93.9 Abnormal uterine and vaginal bleeding, unspecified (principal); Z12.4 Encounter for screening for malignant neoplasm of cervix | CPT/HCPCS: 81025; 87624 ==

== ENCOUNTER 2022-08-03 11:56 | Day surgery (SDC) | payer MEDICAID, SELFPAY ==
[2022-08-03] VITALS (14 sets, daily range): BP systolic 99–132; BP diastolic 61–89; PULSE 56–96; RESP 11–19; TEMP 36.1–37.1; O2SAT 94–100
[2022-08-03 12:44] LABS: OR HCG Qualitative Urine Negative (Negative)
[2022-08-03] MEDS: scopolamine 1.5 Patch 1 PATCH TRANSDERMA (13:11)
[2022-08-03] MEDS: sodium chloride 0.9% 1,000 ML 30 ML IV (13:11)
--- NOTE | 2022-08-03 13:17 | P.HPUD_ITS ---
Surgery/Procedure H&P Update DATE OF PROCEDURE: August 03, 2022 DATE H&P PERFORMED: 07/26/22 CHANGES TO PREVIOUS DOCUMENTATION: none PREOP DIAGNOSIS: pelvic pain, abnormal bleeding PRIMARY INDICATION FOR PROCEDURE: pelvic pain, abnormal uterine bleeding PLANNED PROCEDURE: Operation Date: 08/03/22 14:00 Proposed Procedures p Laparoscopy w/possible Biopsy [id number],R10.2,N93.9(Not Applicable) - Taj Gonzales MD s possible fulguration of endometrial implants/lesions 81041(Not Applicable) - Taj Gonzales MD s Hysteroscopy w/ Myosure Hysteroscopy w/ Myosure with Endometrial Sampling 32072(Not Applicable) - Taj Gonzales MD s Possible endometrial polypectomy 55733(Not Applicable) - Taj Gonzales MD
--- NOTE | 2022-08-03 13:17 | W.PM.OPSUD ---
Surgery/Procedure H&P Update DATE OF PROCEDURE: August 03, 2022 DATE H&P PERFORMED: 07/26/22 CHANGES TO PREVIOUS DOCUMENTATION: none PREOP DIAGNOSIS: pelvic pain, abnormal bleeding PRIMARY INDICATION FOR PROCEDURE: pelvic pain, abnormal uterine bleeding PLANNED PROCEDURE: Operation Date: 08/03/22 14:00 Proposed Procedures p Laparoscopy w/possible Biopsy [id number],R10.2,N93.9(Not Applicable) - Taj Gonzales MD s possible fulguration of endometrial implants/lesions 18850(Not Applicable) - Taj Gonzales MD s Hysteroscopy w/ Myosure Hysteroscopy w/ Myosure with Endometrial Sampling 75760(Not Applicable) - Taj Gonzales MD s Possible endometrial polypectomy 20717(Not Applicable) - Taj Gonzales MD
--- NOTE | 2022-08-03 13:20 | ANES.PREANE2 ---
Pre-Anesthetic Assessment Height/Weight: Height 1.6 m Weight 52.163 kg Temp Pulse Resp BP Pulse Ox O2 Del Method 98.7 F 78 16 122/87 100 Room Air 08/03/22 12:48 08/03/22 12:48 08/03/22 12:48 08/03/22 12:48 08/03/22 12:48 08/03/22 12:51 Preop Diagnosis: pelvic pain, abnormal bleeding Operation Date: 08/03/22 14:00 Proposed Procedures p Laparoscopy w/possible Biopsy [id number],R10.2,N93.9(Not Applicable) - Taj Gonzales MD s possible fulguration of endometrial implants/lesions 89273(Not Applicable) - Taj Gonzales MD s Hysteroscopy w/ Myosure Hysteroscopy w/ Myosure with Endometrial Sampling 83966(Not Applicable) - Taj Gonzales MD s Possible endometrial polypectomy 11802(Not Applicable) - Taj Gonzales MD Familial anesthetic complications: none Was Beta Handy taken within 24 hours: N/A Was Clonidine taken within 24 hours: N/A Last intake: Intake Last Liquid Date 08/02/22 Last Liquid Time 22:00 Last Solid Date 08/02/22 Last Solid Time 19:00 Social No alcohol and No tobacco Exam alert, oriented x 3, clear to auscultation bilaterally and regular rate & rhythm Airway Mallampati: Class III Dentition: full Pulmonary Asthma (seasonal) Anesthetic Plan ASA status: 2 Anesthesia: General Risk of > 500 ml blood loss (7ml/kg in children): No Medications/Allergies Home Medications Medication Instructions Recorded Confirmed Last Taken Type loratadine 10 mg tablet 10 mg PO DAILY PRN allergy 10/06/21 08/02/22 08/01/22 Rx symptoms #30 tabs albuterol sulfate 90 mcg/actuation 2 inh inhalation Q4H PRN shortness 04/28/22 08/02/22 08/01/22 Rx aerosol inhaler of breath or wheezing #6.7 grams diclofenac sodium 75 mg 75 mg PO BID PRN pain #60 tabs 05/16/22 08/02/22 Unknown Rx tablet,delayed release diclofenac sodium 1 % topical gel 4 g topical QID joint pain #100 05/18/22 08/03/22 Unknown Rx grams omeprazole 40 mg capsule,delayed See Rx Instructions PO DAILY acid 03/02/23 05/17/23 Unknown Rx release reflux #30 caps amitriptyline 25 mg tablet 25 mg PO .po q hs #30 tabs 05/19/22 08/02/22 08/02/22 Rx naproxen 500 mg tablet (Naprosyn) 500 mg PO BID PRN pain #60 tabs 05/19/22 08/02/22 Unknown Rx ondansetron 4 mg disintegrating 4 mg PO Q8H PRN nausea and 05/19/22 08/03/22 07/13/22 Rx tablet vomiting #10 tabs prednisone 20 mg tablet See Rx Instructions PO .COMPLEX 05/24/22 07/26/22 Unknown Rx PRN joint pain flare #30 tabs doxycycline hyclate 100 mg tablet 200 mg PO ONCE #2 tabs 08/02/22 08/03/22 08/02/22 Rx Allergies Allergy/AdvReac Type Severity Reaction Status Date / Time azithromycin Allergy ADR-Chest Verified 08/02/22 15:36 Pain ciprofloxacin Allergy ADR-Chest Verified 08/02/22 15:36 Pain Current Medications Generic Name Dose Route Start Last Admin Trade Name Freq PRN Reason Stop Dose Admin Sodium Chloride 1,000 mls @ 30 mls/hr 08/03/22 12:30 08/03/22 13:11 Sodium Chloride 0.9% IV 08/04/22 12:29 30 mls/hr .Q24H LUCERO Administration PFSH Anesthesia Medical History Allergic rhinitis due to allergen Follicular cyst of both ovaries LIZZY (generalized anxiety disorder) Left-sided chest wall pain Menorrhagia, premenopausal Pre-menstrual mood disorder Surgical History History of x 2 Family History Denies family history of Colon cancer Ovarian cancer Diabetes Heart disease Hypercholesteremia Breast cancer Hypertension Uterine cancer Thyroid disease Stroke Female Reproductive History Date of last menstrual period: 07/19/22 Data Anesthesia Cardiac Studies: No Data to Display
[2022-08-03] MEDS: ondansetron 2 mg/ML SDV 2 mL 4 MG IVP (15:16)
[2022-08-03] MEDS: fentaNYL 50 mcg/mL INJ 2mL 100 MCG IVP (15:23)
--- NOTE | 2022-08-03 17:26 | ANE.PACU2 ---
Inpatient post-anesthesia follow up: Airway intact: Yes Vital signs: Temperature 98.5 F Pulse Rate 74 Respiratory Rate 16 Blood Pressure 114/84 Pulse Oximetry 99 Oxygen Delivery Me thod Room Air Oxygen Flow Rate Fraction of Inspir ed Oxygen Hydration adequate: Yes Nausea and vomiting: No Pain level: 1 Mental status: Baseline
--- NOTE | 2022-08-04 00:06 | P.OP_ITS ---
Operative Report Date of procedure: August 04, 2022 Pre-op diagnosis: Preop Diagnosis pelvic pain, abnormal bleeding Post-op diagnosis: same Post-op diagnosis: pelvic endometriosis endometrial polyp Post-op findings: normal uterus, tubes, and ovaries Adhesions from lower uterus to anterior abdominal wall Filmy adhesions in area of ovaries A single black powder-burn lesion right pelvic sidewall, in close proximity To ureter and iliac vessels Normal broad and utero-ovarian ligaments Normal posterior cul-de-sac normal anterior cul-de-sac + 2 cm endometrial polyp Diffusely fluffy endometrial tissue Procedure done: laparoscopy Hysteroscopy Endometrial polypectomy and sampling with Myosure device Specimens removed/disposition: endometrial tissue Surgeon: Taj Gonzales MD Anesthesia: General Estimated blood loss (mL): 5 Complications: none Condition: stable Disposition: PACU Brief History: patient with chronic pelvic pain, dysmenorrhea, abnormal uterine bleeding Procedure: Informed consent obtained. The patient was taken to the OR and placed supine on the table. General endotracheal anesthesia was given. The patient was then placed in dorsolithotomy position. The abdomen and perineum were prepped and draped in usual fashion. A pretty catheter was placed. A Zumi uterine manipulator was placed. A 5 mm subumbilical skin incision was made. A laparoscopic trocar with sheath was inserted into the peritoneal cavity under direct vision with the l aparoscope. Pneumoperitoneum was achieved. One 5 mm incisions were made in the left mid-abdominal quadrants under direct visualization to accommodate an additional trocars and sheath. The pelvis was explored with the laparoscope. Bilateral fallopian tubes were seen to be normal. Normal uterus and ovaries were seen. There were adhesions between the lower uterine segment and the anterior abdominal wall, resulting from previous c-sections. There were filmy adhesions in the area of both ovaries. No abnormalities were seen in the utero-ovarian ligaments, broad ligaments, and posterior cul-de-sac. In the right pelvic side-wall was observed a single 1 cm black powder-burn lesion c/w endometrisois. Due to its proximity to the right ureter and right iliac vessels, it was decided not to excise it. No other lesions were seen. No bleeding was seen The remainder of the pelvis was again examined and seen to be normal. All instruments were then removed from the abdominal cavity after the pneumoperitoneum was allowed to escape. The skin incisions were closed with 4-O monocryl. Dermabond was applied. The pretty catheter and Zumi were removed. A bivalve speculum was placed in the vagina. The anterior lip of the cervix was grasped with a sharp-toothed tenaculum. The cervix was serially dilated with Hegar dilators. . A hysteroscope was placed into the endometrial cavity. A 2 cm polyp was seen. There was diffusely fluffy endometrial tissue. A Myosure device was used to remove the polyp and much of the endometrial tissue. Endometrial tissue was sent to pathology. The endometrial cavity was seen to be intact. The hysteroscope and Myosure device were withdrawn. The sharp- toothed tenaculum was removed. There was no bleeding from the cervix. The patient was then placed supine, awakened, and taken to the recovery room in good condition. Postop condition: stable EBL: 5 cc Sponge and instruments counts were normal x 2 Complications: none
== END 2022-08-03 17:15 | disposition home or self-care (01) ==
PROVIDERS: PCP Family Medicine; Visit Provider Obstetrics & Gynecology
PROC: (CPT 49320; principal; 2022-08-03 13:50)
PROC: 0UDB8ZZ Extraction of Endometrium, Via Natural or Artificial Opening Endoscopic (ICD-10-PCS; CPT 58558; 2022-08-03 13:50)
PROC: (CPT 49320; 2022-08-03 13:50)
DX: R10.2 Pelvic and perineal pain (principal); N93.9 Abnormal uterine and vaginal bleeding, unspecified; J45.909 Unspecified asthma, uncomplicated; N84.0 Polyp of corpus uteri
CPT/HCPCS: 49320; 58558; 81025; 84703; 88305; J1100; J1200; J1885; J2250; J2405; J2704; J2710; J3010; J3490; J7030

== ENCOUNTER 2022-08-17 21:37 | Emergency (ER) | payer MEDICAID, SELFPAY ==
[2022-08-17 21:41] VITALS: BP 136/86; PULSE 74; RESP 14; TEMP 36.3; O2SAT 100
--- NOTE | 2022-08-17 22:33 | ED_ITS ---
HPI - General Adult General: Chief complaint: General Medical Stated complaint: Chest Pain Time Seen by Provider: 08/17/22 22:12 History of Present Illness: Ms. Joyce is a 27-year-old lady presenting to the emergency department for chest and breast pain. She notes onset of symptoms of breast pain with nipple tenderness and firmness as well as radiation superior and laterally a pproximately 1 week ago. Denies rash or nipple discharge. She also notes chest pain and heart racing sensation and shortness of breath. Moderate to severe in intensity. Mildly improved since onset. She tried albuterol with only mild relief and subsequently felt quite anxious. She has a history of breast augmentation approximately 6 months ago. Additionally she underwent laparoscopy and hysteroscopy on 08/04 for further evaluation of possible endometriosis. Onset (ago): day(s) Severity: moderate Quality: aching and sharp Exacerbating factors: other Review of Systems General: Reports: 10 or more systems reviewed and unremarkable except in HPI and below PFSH ED PFSH: Medical History Allergic rhinitis due to allergen Follicular cyst of both ovaries LIZZY (generalized anxiety disorder) Left-sided chest wall pain Menorrhagia, premenopausal Pre-menstrual mood disorder Surgical History History of x 2 Family History Denies family history of Colon cancer Ovarian cancer Diabetes Heart disease Hypercholesteremia Breast cancer Hypertension Uterine cancer Thyroid disease Stroke Physical Exam Const: COMMON NORMALS: alert GENERAL APPEARANCE: cooperative and well developed HENMT: COMMON NORMALS: normocephalic and atraumatic HEAD & SCALP: normocephalic and atraumatic Eye: COMMON NORMALS: conjunctivae normal CONJUNCTIVA: Yes conjunctivae normal SCLERA: sclerae normal Neck/C-Spine: COMMON NORMALS: supple GENERAL: Yes trachea midline Chest: OTHER: Performed with director internal control present, unremarkable left breast for palpable abnormality or skin lesions. Lateral upper and lower as well as axillary tenderness. Resp: COMMON NORMALS: normal respiratory effort and clear to auscultation bilaterally EFFORT & INSPECTION: Yes able to speak in complete sentences AUSCULTATION: clear to auscultation bilaterally Cardio: COMMON NORMALS: regular rate and regular rhythm RATE: regular rate RHYTHM: regular rhythm GI: COMMON NORMALS: Soft to palpation PALPATION: Yes Soft to palpation and No Tenderness to palpation present (GI) Extremity: GENERAL: Yes normal exam except as noted and No edema Neuro: COMMON NORMALS: moves all extremities SENSORIUM/ORIENTATION: Yes alert and No Orientation impaired Psych: COMMON NORMALS: mental status grossly normal and Normal thought process present THOUGHT PROCESS: Normal thought process present Course Vital Signs: Vital signs: Vital Signs Temperature 97.3 F L 08/17/22 21:41 Pulse Rate 66 08/18/22 00:38 Respiratory Rate 15 08/18/22 00:38 Blood Pressure 124/79 08/18/22 00:38 Pulse Oximetry 98 08/18/22 00:38 Oxygen Delivery Me thod Room Air 08/18/22 00:00 MDM - General Adult Medical Decision Making 27-year-old lady presenting with breast pain and chest pain. Exam as above. Nontoxic. EKG notable for sinus rhythm with normal axis and intervals, no STEMI. Unremarkable hematologic and metabolic panel. Inflammatory markers are negativ e. Negative D-dimer. hCG negative. Chest x-ray with no lobar consolidation or pneumothorax. Unspecified breast and chest pain. Patient is low risk by heart score. Plans for outpatient follow-up already scheduled with plastic surgeon. The results of ED evaluation were discussed with the patient including prescriptions and/or symptomatic cares (if applicable) including appropriate and responsible use, followup plan, and return precautions. The patient verbalized understanding and felt safe for discharge. Medical Records I reviewed the patient's medical records. Lab Data I reviewed the patient's lab results. 08/17/22 22:10 08/17/22 22:10 Radiology Impressions Chest X-Ray 08/17/22 22:34 IMPRESSION: No acute findings. Laboratory Results WBC 6.8 10^3/uL (4.0-10.0) 08/17/22 22:10 RBC 4.29 10^6/uL (4.1-5.3) 08/17/22 22:10 Hgb 12.5 g/dL (11.5-15.3) 08/17/22 22:10 Hct 38.6 % (37.0-47.0) 08/17/22 22:10 MCV 90.0 fl (81-99) 08/17/22 22:10 MCH 29.1 pg (28.0-34.0) 08/17/22 22:10 MCHC 32.4 g/dL (30.0-36.0) 08/17/22 22:10 RDW 12.9 % (12.1-15.1) 08/17/22 22:10 Plt Count 325 10^3/cmm (130-400) 08/17/22 22:10 MPV 10.0 fL (7.4-10.4) 08/17/22 22:10 Neut % (Auto) 43.2 % 08/17/22 22:10 Lymph % (Auto) 50.1 % 08/17/22 22:10 [place] % (Auto) 4.2 % 08/17/22 22:10 Eos % (Auto) 1.8 % 08/17/22 22:10 Baso % (Auto) 0.6 % 08/17/22 22:10 Neut # (Auto) 2.95 10^3/uL (1.8-7.7) 08/17/22 22:10 Lymph # (Auto) 3.4 10^3/uL (0.8-4.8) 08/17/22 22:10 [place] # (Auto) 0.3 10^3/uL (0.2-0.9) 08/17/22 22:10 Eos # (Auto) 0.1 10^3/uL (0.0-0.8) 08/17/22 22:10 Baso # (Auto) 0.0 10^3/uL (0.0-0.1) 08/17/22 22:10 Nucleated RBC % (auto) 0 % 08/17/22 22:10 Nucleated RBCs # 0.0 /100WBC 08/17/22 22:10 ESR < 1 mm/hr (0-15) 08/17/22 22:10 D-Dimer <= 0.27 ug/mIFEU (0-0.59) 08/17/22 22:10 Sodium 142 mmol/L (136-145) 08/17/22 22:10 Potassium 3.4 mmol/L (3.5-5.1) L 08/17/22 22:10 Chloride 104 mmol/L (98-107) 08/17/22 22:10 Carbon Dioxide 23 mmol/L (22-29) 08/17/22 22:10 Anion Gap 18.4 (5-19) 08/17/22 22:10 BUN 10 mg/dL (6-20) 08/17/22 22:10 Creatinine 0.5 mg/dL (0.5-0.9) 08/17/22 22:10 GFR Calculation 146.9 mL/min (90-130) H 08/17/22 22:10 Glucose 110 mg/dL (65-115) 08/17/22 22:10 Calculated Osmolality 294 mOsm/kg (285-295) 08/17/22 22:10 Calcium 9.6 mg/dL (8.5-10.5) 08/17/22 22:10 Total Bilirubin 0.7 mg/dL (0.15-1.2) 08/17/22 22:10 AST 14 U/L (0-32) 08/17/22 22:10 ALT 12 U/L (0-33) 08/17/22 22:10 Alkaline Phosphatase 44 U/L (35-105) 08/17/22 22:10 Troponin T Baseline 6 ng/L (0-10) 08/17/22 22:10 C-Reactive Protein 3.0 mg/L (0.0-4.9) 08/17/22 22:10 Total Protein 7.3 g/dL (6.6-8.7) 08/17/22 22:10 Albumin 5.0 g/dL (3.5-5.2) 08/17/22 22:10 Globulin 2.3 g/dL (1.3-4.6) 08/17/22 22:10 HCG, Qual Negative (Negative) 08/17/22 22:10 Discharge Plan Discharge Patient Disposition: Home Clinical Impression: Mastalgia in female, Shortness of breath, Chest pain, pleuritic Condition: Stable Prescriptions: New ondansetron 4 mg tablet,disintegrating 4 mg PO Q8H PRN (Reason: nausea and vomiting) Qty: 15 0RF No Action loratadine 10 mg tablet 10 mg PO DAILY PRN (Reason: allergy symptoms) Qty: 30 1RF albuterol sulfate 90 mcg/actuation HFA aerosol inhaler 2 inh inhalation Q4H PRN (Reason: shortness of breath or wheezing) Qty: 6.7 0RF diclofenac sodium 75 mg tablet,delayed release (DR/EC) 75 mg PO BID PRN (Reason: pain) Qty: 60 0RF diclofenac sodium 1 % gel 4 g topical QID Qty: 100 2RF Rx Instructions: apply to affected area as needed omeprazole 40 mg capsule,delayed release(DR/EC) See Rx Instructions PO DAILY Qty: 30 3RF Rx Instructions: Take 30minutes before breakfast in am orally daily; amitriptyline 25 mg tablet 25 mg PO .po q hs Qty: 30 0RF naproxen [Naprosyn] 500 mg tablet 500 mg PO BID PRN (Reason: pain) Qty: 60 0RF Rx Instructions: Take with food ondansetron 4 mg tablet,disintegrating 4 mg PO Q8H PRN (Reason: nausea and vomiting) Qty: 10 0RF prednisone 20 mg tablet See Rx Instructions PO .COMPLEX PRN (Reason: joint pain flare) Qty: 30 0RF Rx Instructions: take 1 daily for 3-7 days PRN joint pain flare PO PRN; doxycycline hyclate 100 mg tablet 200 mg PO ONCE Qty: 2 0RF Discharge Orders: Discharge ED (Routine); Ordered 08/18/22 Ordered By: Justin Acevedo Referrals: Merced Rg DO [Primary Care Provider] - Discharge Diet: Usual diet Discharge Activity: Resume usual activity Patient Instructions: Breast Pain, Chest Pain (ED), Opioid Safety Activity Restrictions/Additional Instructions: Thank you for visiting the emergency department. You were seen and evaluated for breast and chest pain. The exact cause of your symptoms is unclear however it does not appear to need hospitalization at this time. I recommend follow-up with a primary care provider. You may require further imaging in the outpatient setting to further evaluate your breast pain. You may use [id number] medications such as acetaminophen and ibuprofen for pain however please do not exceed the daily recommended dosage as listed on the packaging and please keep in mind that many namebrand medications contain the same active ingredients. Please avoid these medications if previously instructed to do so by another physician due to other underlying medical condition. Given shortness of breath with underlying asthma I will prescribe steroids. Please also use your albuterol metered-dose inhaler 2 puffs every 4 hours for 24 hours followed by 2 puffs every 6 hours for 24 hours followed by 2 puffs every 8 hours for 24 hours and then return to the normal schedule. Return to the emergency department for uncontrolled symptoms or anything else that you are concerned about and feel needs emergency department evaluation. Coding Level of Care Code ED Gro[employer] Manager for Sylvie Holley
--- NOTE | 2022-08-17 22:34 | XRR_ITS ---
PROCEDURE INFORMATION: Exam: XR Chest Exam date and time: 08/17/2022 10:40 PM Age: 27 years old Clinical indication: Chest pressure; Prior surgery; Surgery date: 6+ months; Surgery type: Breast augmentation; Patient HX: C/O chest pain TECHNIQUE: Imaging protocol: Radiologic exam of the chest. Views: 1 view. COMPARISON: CR XR chest 2V* [id number] 01/03/2022 9:55 AM FINDINGS: Lungs: Unremarkable. No consolidation. Pleural spaces: Unremarkable. No pleural effusion. No pneumothorax. Heart/Mediastinum: Unremarkable. No cardiomegaly. Bones/joints: Unremarkable. XR/XR chest 1V portable [id number] IMPRESSION: No acute findings.
--- NOTE | 2022-08-17 22:34 | ECG_ITS ---
[facility] Test Date: 2022-08-17 Pat Name: Nara Joyce Department: Room: Gender: Female Clam Dredger: : 1995 Requested By: Betzy Black Order Number: [id number] Cao MD: Unruly Gill M.D. Measurements Intervals [place] Rate: 73 P: 76 RI: 130 QRS: 60 QRSD: 85 T: 55 QT: 370 QTc: 408 Interpretive Statements SINUS RHYTHM WITH SINUS ARRHYTHMIA NONSPECIFIC T-WAVE ABNORMALITY No previous ECG available for comparison Electronically Signed On 08-18-2022 8:31:05 CDT by Unruly Gill M.D. [id number] f
[2022-08-17 22:46] LABS: HCG, Serum Qual Negative (Negative)
[2022-08-17 22:47] LABS: Erythrocyte Sedimentation Rate < 1 mm/hr (0-15)
[2022-08-17 22:50] LABS: Basophils % 0.6 %; Eosinophils # 0.1 10^3/uL (0.0-0.8); Eosinophils % 1.8 %; Hematocrit 38.6 % (37.0-47.0); Hemoglobin 12.5 g/dL (11.5-15.3); Lymphocytes # 3.4 10^3/uL (0.8-4.8); Lymphocytes % 50.1 %; Mean Corpuscular HGB Conc 32.4 g/dL (30.0-36.0); Mean Corpuscular Hemoglobin 29.1 pg (28.0-34.0); Monocytes # 0.3 10^3/uL (0.2-0.9); Monocytes % 4.2 %; Neutrophils # 2.95 10^3/uL (1.8-7.7); Neutrophils % 43.2 %; Nucleated Red Blood Cells % 0 %; Platelet Count 325 10^3/cmm (130-400); Red Blood Count 4.29 10^6/uL (4.1-5.3); Red Cell Distribution Width 12.9 % (12.1-15.1); White Blood Count 6.8 10^3/uL (4.0-10.0)
[2022-08-17 22:55] LABS: Troponin(5th) Baseline 6 ng/L (0-10)
[2022-08-17 22:56] LABS: Alanine Aminotransferase 12 U/L (0-33); Alkaline Phosphatase 44 U/L (35-105); Anion Gap 18.4 (5-19); Aspartate Amino Transferase 14 U/L (0-32); Blood Urea Nitrogen 10 mg/dL (6-20); Calcium 9.6 mg/dL (8.5-10.5); Carbon Dioxide 23 mmol/L (22-29); Chloride 104 mmol/L (98-107); Globulin 2.3 g/dL (1.3-4.6); Glomerular Filtration Rate 146.9 mL/min (90-130); Glucose 110 mg/dL (65-115); Osmolality Calculated 294 mOsm/kg (285-295); Potassium 3.4 mmol/L (3.5-5.1); Sodium 142 mmol/L (136-145); Total Bilirubin 0.7 mg/dL (0.15-1.2); Total Protein 7.3 g/dL (6.6-8.7)
[2022-08-17 23:04] LABS: D Dimer <= 0.27 ug/mIFEU (0-0.59)
[2022-08-17] MEDS: potassium chloride oral liq 20 mEq/15 mL UDC 40 MEQ PO (23:39)
[2022-08-17] MEDS: lidocaine 2% viscous 15 ML, aluminum-mag hydrox-simethicon 30 ML, sucralfate oral liq 1 GM PO (23:41)
[2022-08-17] MEDS: ketorolac 30 mg/mL INJ 15 MG IVP (23:45)
[2022-08-17 23:50] VITALS: RESP 14; O2SAT 100
[2022-08-17] MEDS: morphine 4 mg/mL SDV 1 mL IVP (23:50)
[2022-08-17 23:52] VITALS: BP 119/86; PULSE 70; RESP 14; O2SAT 100
[2022-08-18] VITALS: BP 144/84; PULSE 83; RESP 15; O2SAT 97
[2022-08-18] MEDS: ondansetron 2 mg/ML SDV 2 mL 4 MG IVP (00:03)
[2022-08-18 00:38] VITALS: BP 124/79; PULSE 66; RESP 15; O2SAT 98
== END 2022-08-18 00:42 | disposition home or self-care (01) ==
PROVIDERS: Physician Assistant; Emergency Provider Emergency Medicine; PCP Family Medicine
DX: N64.4 Mastodynia (principal); R06.02 Shortness of breath; R07.89 Other chest pain
CPT/HCPCS: 71045; 80053; 84484; 84703; 85025; 85378; 85651; 86140; 93005; 96374; 96375; 99285; J1885; J2270; J2405; J3475

== ENCOUNTER 2022-09-14 14:08 | Outpatient (CLI) | payer MEDICAID, SELFPAY ==
--- NOTE | 2022-09-14 14:59 | US_ITS ---
WS: [id number] ULTRASOUND BREAST BILATERAL TECHNIQUE: Ultrasound bilateral breast focused area of concern. HISTORY: Bilateral breast pain. History of breast implants. CLINICAL INFORMATION: Bilateral breast pain. COMPARISON: None. FINDINGS: Visualized breast implants appear intact. RIGHT BREAST: Ultrasound RIGHT breast area of concern. Cluster of incidental cysts at the 8:00 areola the largest measuring 5.7 x 8.3 mm. These have a benign appearance. No other suspicious abnormalitie s in the RIGHT breast. LEFT BREAST: Ultrasound LEFT breast area of concern about the areola. No suspicious cystic or solid l esions. Ultrasound performed from the 12 to 6:00 position. US/US breast BI limited* [id number] IMPRESSION: BI-RADS 2 benign Recommend annual screening mammography age 40
== END 2022-09-14 14:09 | disposition home or self-care (01) ==
PROVIDERS: PCP Family Medicine; Visit Provider Student in an Organized Health Care Education/Training Program
DX: N64.4 Mastodynia (principal)
CPT/HCPCS: 76642

== ENCOUNTER 2022-10-20 08:44 | Emergency (ER) | payer MEDICAID, SELFPAY ==
[2022-10-20 08:54] VITALS: BP 122/78; PULSE 84; RESP 14; TEMP 36.7; O2SAT 98
[2022-10-20 09:24] VITALS: BP 109/78; PULSE 94; O2SAT 94
[2022-10-20 09:24] LABS: Basophils % 0.6 %; Eosinophils # 0.1 10^3/uL (0.0-0.8); Eosinophils % 1.4 %; Hematocrit 38.1 % (37.0-47.0); Hemoglobin 12.3 g/dL (11.5-15.3); Lymphocytes # 1.3 10^3/uL (0.8-4.8); Lymphocytes % 17.6 %; Mean Corpuscular HGB Conc 32.3 g/dL (30.0-36.0); Mean Corpuscular Hemoglobin 29.4 pg (28.0-34.0); Mean Corpuscular Volume 90.9 fl (81-99); Mean Platelet Volume 9.5 fL (7.4-10.4); Monocytes # 0.6 10^3/uL (0.2-0.9); Monocytes % 8.8 %; Neutrophils # 5.09 10^3/uL (1.8-7.7); Neutrophils % 71.3 %; Nucleated Red Blood Cells % 0 %; Platelet Count 250 10^3/cmm (130-400); Red Blood Count 4.19 10^6/uL (4.1-5.3); Red Cell Distribution Width 12.8 % (12.1-15.1); White Blood Count 7.1 10^3/uL (4.0-10.0)
[2022-10-20] MEDS: sodium chloride 0.9% 1,000 ML 999 ML IV (09:28)
[2022-10-20] MEDS: ketorolac 30 mg/mL INJ IVP (09:28)
[2022-10-20] MEDS: metoclopramide 5 mg/mL SDV 2 mL 10 MG IVP (09:29)
[2022-10-20] MEDS: diphenhydrAMINE 50 mg/mL SDV 1mL IVP (09:30)
[2022-10-20 09:36] LABS: HCG, Serum Qual Negative (Negative)
[2022-10-20 09:44] LABS: Alanine Aminotransferase 18 U/L (0-33); Albumin Level 4.6 g/dL (3.5-5.2); Alkaline Phosphatase 55 U/L (35-105); Anion Gap 15.7 (5-19); Aspartate Amino Transferase 17 U/L (0-32); Blood Urea Nitrogen 9 mg/dL (6-20); Calcium 9.4 mg/dL (8.5-10.5); Carbon Dioxide 24 mmol/L (22-29); Chloride 102 mmol/L (98-107); Globulin 2.9 g/dL (1.3-4.6); Glomerular Filtration Rate 190.1 mL/min (90-130); Glucose 87 mg/dL (65-115); Osmolality Calculated 284 mOsm/kg (285-295); Potassium 3.7 mmol/L (3.5-5.1); Sodium 138 mmol/L (136-145); Total Bilirubin 1.2 mg/dL (0.15-1.2); Total Protein 7.5 g/dL (6.6-8.7)
--- NOTE | 2022-10-20 10:48 | W.ED.HA ---
Documented by User: Hilaria Charles GLAZE SUPERVISOR-C 10/20/22 11:49 HPI - Headache General: Chief Complaint: Headache Stated Complaint: Migrane Time Seen by Provider: 10/20/22 08:45 History of Present Illness: Patient is in today for headache. She reports that she has chronic headaches and this is very typical for her. She reports that this 1 has lasted approximately 2 weeks which is why she came in today because it does not seem to be improving. She rates the pain 8 on a 0-to-10 scale currently. She denies any visual disturbance, nausea, vomiting. She denies fever, chills. She denies any possibility of . She has not taken anything for her headache today. At home she has been taking Tylenol and Motrin. Associated symptoms: Deny chest pain, fever(s), lightheadedness, nausea, syncope or vomiting Review of Systems Const: Denies: fever(s), chills or body aches Eyes: Denies: change in vision or blurry vision ENMT: Denies: throat pain Card: Denies: chest pain, palpitations, irregular heart rhythm, lightheadedness or syncope Resp: Denies: dyspnea, productive cough or non-productive cough GI: Denies: abdominal pain, nausea or vomiting : Denies: flank pain, difficulty voiding, dysuria, urinary frequency, urinary urgency or urinary hesitancy Musc: Denies: neck pain or back pain Neuro: Reports: headache(s); Denies: numbness in extremities, weakness in extremities, lack of coordination, difficulty walking, dizziness, behavioral changes or Slurred speech present PFS ED PFSH: Medical History Allergic rhinitis due to allergen Follicular cyst of both ovaries LIZZY (generalized anxiety disorder) Left-sided chest wall pain Menorrhagia, premenopausal Pre-menstrual mood disorder Surgical History History of x 2 Family History Denies family history of Colon cancer Ovarian cancer Diabetes Heart disease Hypercholesteremia Breast cancer Hypertension Uterine cancer Thyroid disease Stroke Physical Exam Const: COMMON NORMALS: no acute distress, patient oriented x3 and alert GENERAL APPEARANCE: cooperative ORIENTATION/CONSCIOUSNESS: Yes awake, Yes oriented to person, Yes oriented to place and Yes oriented to time OTHER: Patient is sitting up in bed and appears in no acute distress. Eye: COMMON NORMALS: Equal, round and reactive pupils present, EOMs intact bilaterally and conjunctivae normal GENERAL EYE: appearance normal, both eyes and all related structures ALIGNMENT: Yes alignment normal CONJUNCTIVA: Yes conjunctivae normal SCLERA: sclerae normal PUPIL: Yes Equal, round and reactive pupils present Neck/C-Spine: COMMON NORMALS: full ROM Resp: COMMON NORMALS: normal respiratory effort, No retractions, No use of accessory muscles and clear to auscultation bilaterally EFFORT & INSPECTION: Yes symmetric chest movement AUSCULTATION: clear to auscultation bilaterally Cardio: COMMON NORMALS: regular rate, regular rhythm, S1 normal heart sound present and S2 normal heart sound present RATE: regular rate RHYTHM: regular rhythm HEART SOUNDS: S1 normal heart sound present and S2 normal heart sound present GI: COMMON NORMALS: Normal to inspection, nondistended, normoactive bowel sounds present, Soft to palpation, non-tender, No hepatosplenomegaly present, no masses and no bruits INSPECTION: Yes normal to inspection PALPATION: Yes Soft to palpation and Yes No hepatosplenomegaly present : COMMON NORMALS: Yes no CVA tenderness BLADDER/KIDNEY EXAM: Yes no CVA tenderness Back/Pelvis: COMMON NORMALS: no CVA tenderness Neuro: COMMON NORMALS: patient oriented x3 SENSORIUM/ORIENTATION: Yes alert, Yes oriented to person, Yes oriented to place and Yes oriented to time Psych: COMMON NORMALS: cooperative Course Vital Signs: Vital signs: Vital Signs Temperature 98.0 F 10/20/22 08:54 Pulse Rate 91 10/20/22 11:00 Respiratory Rate 14 10/20/22 08:54 Blood Pressure 102/77 10/20/22 11:00 Pulse Oximetry 100 10/20/22 11:00 Oxygen Delivery Me thod Room Air 10/20/22 09:24 MDM - Headache Medical Decision Making Patient is in today for her migraine. She reports the headache is consistent characteristics with chronic headaches that she experiences at home. My clinical exam findings are not consistent with the patient's perceived level of pain rated an 8 on a 0-to-10 scale. Cranial nerves II through XII grossly intact. No pain with lateral eye gaze. FROM neck. WBC WNL. I discussed with patient that, at this time, I have little concern for acute intracranial process requiring CT evaluation. We discussed the potential risk of radiation exposure outweighs the potential benefit of the scan given her current physical exam findings and HPI. Treated patient with migraine cocktail. Patient pain resolved completely and she requested discharge to home. Advised her to follow-up with primary care provider. Return to the ER for any new or worsening symptoms Dr. Headley ordered inflammatory markers ESR and CRP. ESR normal, CRP 13.6. Lab Data 10/20/22 09:15 10/20/22 09:15 Laboratory Results WBC 7.1 10^3/uL (4.0-10.0) 10/20/22 09:15 RBC 4.19 10^6/uL (4.1-5.3) 10/20/22 09:15 Hgb 12.3 g/dL (11.5-15.3) 10/20/22 09:15 Hct 38.1 % (37.0-47.0) 10/20/22 09:15 MCV 90.9 fl (81-99) 10/20/22 09:15 MCH 29.4 pg (28.0-34.0) 10/20/22 09:15 MCHC 32.3 g/dL (30.0-36.0) 10/20/22 09:15 RDW 12.8 % (12.1-15.1) 10/20/22 09:15 Plt Count 250 10^3/cmm (130-400) 10/20/22 09:15 MPV 9.5 fL (7.4-10.4) 10/20/22 09:15 Neut % (Auto) 71.3 % 10/20/22 09:15 Lymph % (Auto) 17.6 % 10/20/22 09:15 Owen % (Auto) 8.8 % 10/20/22 09:15 Eos % (Auto) 1.4 % 10/20/22 09:15 Baso % (Auto) 0.6 % 10/20/22 09:15 Neut # (Auto) 5.09 10^3/uL (1.8-7.7) 10/20/22 09:15 Lymph # (Auto) 1.3 10^3/uL (0.8-4.8) 10/20/22 09:15 Owen # (Auto) 0.6 10^3/uL (0.2-0.9) 10/20/22 09:15 Eos # (Auto) 0.1 10^3/uL (0.0-0.8) 10/20/22 09:15 Baso # (Auto) 0.0 10^3/uL (0.0-0.1) 10/20/22 09:15 Nucleated RBC % (auto) 0 % 10/20/22 09:15 Nucleated RBCs # 0.0 /100WBC 10/20/22 09:15 ESR 3 mm/hr (0-15) 10/20/22 09:15 Sodium 138 mmol/L (136-145) 10/20/22 09:15 Potassium 3.7 mmol/L (3.5-5.1) 10/20/22 09:15 Chloride 102 mmol/L (98-107) 10/20/22 09:15 Carbon Dioxide 24 mmol/L (22-29) 10/20/22 09:15 Anion Gap 15.7 (5-19) 10/20/22 09:15 BUN 9 mg/dL (6-20) 10/20/22 09:15 Creatinine 0.4 mg/dL (0.5-0.9) L 10/20/22 09:15 GFR Calculation 190.1 mL/min (90-130) H 10/20/22 09:15 Glucose 87 mg/dL (65-115) 10/20/22 09:15 Calculated Osmolality 284 mOsm/kg (285-295) L 10/20/22 09:15 Calcium 9.4 mg/dL (8.5-10.5) 10/20/22 09:15 Total Bilirubin 1.2 mg/dL (0.15-1.2) 10/20/22 09:15 AST 17 U/L (0-32) 10/20/22 09:15 ALT 18 U/L (0-33) 10/20/22 09:15 Alkaline Phosphatase 55 U/L (35-105) 10/20/22 09:15 C-Reactive Protein 13.6 mg/L (0.0-4.9) H 10/20/22 09:15 Total Protein 7.5 g/dL (6.6-8.7) 10/20/22 09:15 Albumin 4.6 g/dL (3.5-5.2) 10/20/22 09:15 Globulin 2.9 g/dL (1.3-4.6) 10/20/22 09:15 HCG, Qual Negative (Negative) 10/20/22 09:15 Discharge Plan Discharge Patient Disposition: Home Clinical Impression: Headache Condition: Stable Prescriptions: No Action loratadine 10 mg tablet 10 mg PO DAILY PRN (Reason: allergy symptoms) Qty: 30 1RF albuterol sulfate 90 mcg/actuation HFA aerosol inhaler 2 inh inhalation Q4H PRN (Reason: shortness of breath or wheezing) Qty: 6.7 0RF diclofenac sodium 75 mg tablet,delayed release (DR/EC) 75 mg PO BID PRN (Reason: pain) Qty: 60 0RF diclofenac sodium 1 % gel 4 g topical QID Qty: 100 2RF Rx Instructions: apply to affected area as needed omeprazole 40 mg capsule,delayed release(DR/EC) See Rx Instructions PO DAILY Qty: 30 3RF Rx Instructions: Take 30minutes before breakfast in am orally daily; amitriptyline 25 mg tablet 25 mg PO .po q hs Qty: 30 0RF naproxen [Naprosyn] 500 mg tablet 500 mg PO BID PRN (Reason: pain) Qty: 60 0RF Rx Instructions: Take with food ondansetron 4 mg tablet,disintegrating 4 mg PO Q8H PRN (Reason: nausea and vomiting) Qty: 10 0RF prednisone 20 mg tablet See Rx Instructions PO .COMPLEX PRN (Reason: joint pain flare) Qty: 30 0RF Rx Instructions: take 1 daily for 3-7 days PRN joint pain flare PO PRN; doxycycline hyclate 100 mg tablet 200 mg PO ONCE Qty: 2 0RF ondansetron 4 mg tablet,disintegrating 4 mg PO Q6H PRN (Reason: nausea and vomiting) Qty: 30 0RF Rx Instructions: take 4mg every 4hr as needed Nurtec ODT 75 mg tablet,disintegrating 75 mg PO .every other day 30 Days Qty: 15 5RF rizatriptan [Maxalt] 10 mg tablet See Rx Instructions PO .COMPLEX Qty: 10 0RF Rx Instructions: take 1 tab at onset of headache; if no relief may repeat 1 tab after at least 2 hrs; max = 3 tabs/24 hr PO ondansetron 4 mg tablet,disintegrating 4 mg PO Q8H PRN (Reason: nausea and vomiting) Qty: 15 0RF Discharge Orders: Discharge ED (Routine); Ordered 10/20/22 Ordered By: Hilaria Charles Referrals: Merced Rg DO [Primary Care Provider] - Discharge Diet: Usual diet Discharge Activity: Resume usual activity Patient Instructions: Headache - Migraine (Adult) Activity Restrictions/Additional Instructions: Make sure that you are staying well-hydrated, get plenty of rest, you may use Tylenol as needed. No ibuprofen or other NSAIDs for 6 to 8 hours. Follow-up with your primary care provider as needed. Return to the ER for new or worsening symptoms Coding Level of Care Code ED Windows Support Engineer for Chg Fwd Documented by User: Cipriano Headley DO 10/29/22 06:11 HPI - Headache General: Chief Complaint: Headache Stated Complaint: Migrane Time Seen by Provider: 10/20/22 08:45 PFSH ED PFSH: Medical History Allergic rhinitis due to allergen Follicular cyst of both ovaries LIZZY (generalized anxiety disorder) Left-sided chest wall pain Menorrhagia, premenopausal Pre-menstrual mood disorder Surgical History History of x 2 Family History Denies family history of Colon cancer Ovarian cancer Diabetes Heart disease Hypercholesteremia Breast cancer Hypertension Uterine cancer Thyroid disease Stroke Course Vital Signs: Vital signs: Vital Signs Temperature 98.0 F 10/20/22 08:54 Pulse Rate 91 10/20/22 11:00 Respiratory Rate 14 10/20/22 08:54 Blood Pressure 102/77 10/20/22 11:00 Pulse Oximetry 100 10/20/22 11:00 Oxygen Delivery Me thod Room Air 10/20/22 09:24 MDM - Headache Medical Decision Making Patient is in today for her migraine. She reports the headache is consistent characteristics with chronic headaches that she experiences at home. My clinical exam findings are not consistent with the patient's perceived level of pain rated an 8 on a 0-to-10 scale. Cranial nerves II through XII grossly intact. No pain with lateral eye gaze. FROM neck. WBC WNL. I discussed with patient that, at this time, I have little concern for acute intracranial process requiring CT evaluation. We discussed the potential risk of radiation exposure outweighs the potential benefit of the scan given her current physical exam findings and HPI. Treated patient with migraine cocktail. Patient pain resolved completely and she requested discharge to home. Advised her to follow-up with primary care provider. Return to the ER for any new or worsening symptoms Dr. Headley ordered inflammatory markers ESR and CRP. ESR normal, CRP 13.6. Chart reviewed and patient discussed with midlevel. Agree with assessment and plan. Lab Data 10/20/22 09:15 10/20/22 09:15 Laboratory Results WBC 7.1 10^3/uL (4.0-10.0) 10/20/22 09:15 RBC 4.19 10^6/uL (4.1-5.3) 10/20/22 09:15 Hgb 12.3 g/dL (11.5-15.3) 10/20/22 09:15 Hct 38.1 % (37.0-47.0) 10/20/22 09:15 MCV 90.9 fl (81-99) 10/20/22 09:15 MCH 29.4 pg (28.0-34.0) 10/20/22 09:15 MCHC 32.3 g/dL (30.0-36.0) 10/20/22 09:15 RDW 12.8 % (12.1-15.1) 10/20/22 09:15 Plt Count 250 10^3/cmm (130-400) 10/20/22 09:15 MPV 9.5 fL (7.4-10.4) 10/20/22 09:15 Neut % (Auto) 71.3 % 10/20/22 09:15 Lymph % (Auto) 17.6 % 10/20/22 09:15 Owen % (Auto) 8.8 % 10/20/22 09:15 Eos % (Auto) 1.4 % 10/20/22 09:15 Baso % (Auto) 0.6 % 10/20/22 09:15 Neut # (Auto) 5.09 10^3/uL (1.8-7.7) 10/20/22 09:15 Lymph # (Auto) 1.3 10^3/uL (0.8-4.8) 10/20/22 09:15 Owen # (Auto) 0.6 10^3/uL (0.2-0.9) 10/20/22 09:15 Eos # (Auto) 0.1 10^3/uL (0.0-0.8) 10/20/22 09:15 Baso # (Auto) 0.0 10^3/uL (0.0-0.1) 10/20/22 09:15 Nucleated RBC % (auto) 0 % 10/20/22 09:15 Nucleated RBCs # 0.0 /100WBC 10/20/22 09:15 ESR 3 mm/hr (0-15) 10/20/22 09:15 Sodium 138 mmol/L (136-145) 10/20/22 09:15 Potassium 3.7 mmol/L (3.5-5.1) 10/20/22 09:15 Chloride 102 mmol/L (98-107) 10/20/22 09:15 Carbon Dioxide 24 mmol/L (22-29) 10/20/22 09:15 Anion Gap 15.7 (5-19) 10/20/22 09:15 BUN 9 mg/dL (6-20) 10/20/22 09:15 Creatinine 0.4 mg/dL (0.5-0.9) L 10/20/22 09:15 GFR Calculation 190.1 mL/min (90-130) H 10/20/22 09:15 Glucose 87 mg/dL (65-115) 10/20/22 09:15 Calculated Osmolality 284 mOsm/kg (285-295) L 10/20/22 09:15 Calcium 9.4 mg/dL (8.5-10.5) 10/20/22 09:15 Total Bilirubin 1.2 mg/dL (0.15-1.2) 10/20/22 09:15 AST 17 U/L (0-32) 10/20/22 09:15 ALT 18 U/L (0-33) 10/20/22 09:15 Alkaline Phosphatase 55 U/L (35-105) 10/20/22 09:15 C-Reactive Protein 13.6 mg/L (0.0-4.9) H 10/20/22 09:15 Total Protein 7.5 g/dL (6.6-8.7) 10/20/22 09:15 Albumin 4.6 g/dL (3.5-5.2) 10/20/22 09:15 Globulin 2.9 g/dL (1.3-4.6) 10/20/22 09:15 HCG, Qual Negative (Negative) 10/20/22 09:15 Discharge Plan Discharge Patient Disposition: Home Clinical Impression: Headache Condition: Stable Prescriptions: No Action loratadine 10 mg tablet 10 mg PO DAILY PRN (Reason: allergy symptoms) Qty: 30 1RF albuterol sulfate 90 mcg/actuation HFA aerosol inhaler 2 inh inhalation Q4H PRN (Reason: shortness of breath or wheezing) Qty: 6.7 0RF diclofenac sodium 75 mg tablet,delayed release (DR/EC) 75 mg PO BID PRN (Reason: pain) Qty: 60 0RF diclofenac sodium 1 % gel 4 g topical QID Qty: 100 2RF Rx Instructions: apply to affected area as needed omeprazole 40 mg capsule,delayed release(DR/EC) See Rx Instructions PO DAILY Qty: 30 3RF Rx Instructions: Take 30minutes before breakfast in am orally daily; amitriptyline 25 mg tablet 25 mg PO .po q hs Qty: 30 0RF naproxen [Naprosyn] 500 mg tablet 500 mg PO BID PRN (Reason: pain) Qty: 60 0RF Rx Instructions: Take with food ondansetron 4 mg tablet,disintegrating 4 mg PO Q8H PRN (Reason: nausea and vomiting) Qty: 10 0RF prednisone 20 mg tablet See Rx Instructions PO .COMPLEX PRN (Reason: joint pain flare) Qty: 30 0RF Rx Instructions: take 1 daily for 3-7 days PRN joint pain flare PO PRN; doxycycline hyclate 100 mg tablet 200 mg PO ONCE Qty: 2 0RF ondansetron 4 mg tablet,disintegrating 4 mg PO Q6H PRN (Reason: nausea and vomiting) Qty: 30 0RF Rx Instructions: take 4mg every 4hr as needed Nurtec ODT 75 mg tablet,disintegrating 75 mg PO .every other day 30 Days Qty: 15 5RF rizatriptan [Maxalt] 10 mg tablet See Rx Instructions PO .COMPLEX Qty: 10 0RF Rx Instructions: take 1 tab at onset of headache; if no relief may repeat 1 tab after at least 2 hrs; max = 3 tabs/24 hr PO ondansetron 4 mg tablet,disintegrating 4 mg PO Q8H PRN (Reason: nausea and vomiting) Qty: 15 0RF Discharge Orders: Discharge ED (Routine); Ordered 10/20/22 Ordered By: Hilaria Charles Referrals: Merced Rg DO [Primary Care Provider] - Discharge Diet: Usual diet Discharge Activity: Resume usual activity Patient Instructions: Headache - Migraine (Adult) Activity Restrictions/Additional Instructions: Make sure that you are staying well-hydrated, get plenty of rest, you may use Tylenol as needed. No ibuprofen or other NSAIDs for 6 to 8 hours. Follow-up with your primary care provider as needed. Return to the ER for new or worsening symptoms Coding Level of Care Code ED Windows Support Engineer for Sylvie Holley
[2022-10-20 11:00] VITALS: BP 102/77; PULSE 91; O2SAT 100
[2022-10-20 11:04] LABS: C Reactive Protein 13.6 mg/L (0.0-4.9)
[2022-10-20 11:05] LABS: Erythrocyte Sedimentation Rate 3 mm/hr (0-15)
== END 2022-10-20 10:55 | disposition home or self-care (01) ==
PROVIDERS: Family Medicine; Emergency Provider Nurse Practitioner Family; PCP Family Medicine
DX: R51.9 Headache, unspecified (principal)
CPT/HCPCS: 80053; 84703; 85025; 85651; 86140; 96361; 96374; 96375; 99284; J1200; J1885; J2765; J7030

== ENCOUNTER → 2022-10-23 13:08 | Outpatient (BNVA) | payer MEDICAID, SELFPAY | PROVIDERS: PCP Family Medicine; Visit Provider Psychiatry & Neurology Neurology | DX: R51.9 Headache, unspecified (principal); G43.909 Migraine, unspecified, not intractable, without status migrainosus | CPT/HCPCS: 36415; 82607; 82652; 82746; 83921; 84439; 84443; 84481 ==

== ENCOUNTER 2022-11-16 07:16 | Outpatient (CLI) | payer MEDICAID, SELFPAY ==
--- NOTE | 2022-11-16 07:15 | MR_ITS ---
WS: [id number] MRA HEAD TECHNIQUE: Axial 3-D TOF images obtained with axial images and axial, sagittal, and coronal 2-D refor matted images. CLINICAL INFORMATION: R51.9 - Headache, unspecified COMPARISON: None. FINDINGS: Some images degraded by patient motion. Dominant distal LEFT vertebral artery. RIGHT distal vertebral artery ends in PICA. Basilar artery is patent. Normal vascularity to the QUALITY ASSURANCE ANALYST territory bilaterally. Patent LEFT posterior communicating tea ry. Both ICAs are patent at the skull base. Normal vascularity to the LUIS E and MCA territories bilaterally . Patent anterior communicating artery. No evidence of proximal flow-limiting stenosis or aneurysm. IMPRESSION: 1. Dominant distal LEFT vertebral artery. RIGHT distal vertebral artery ends in PICA. 2. Otherwise unremarkable intracranial MRA.
--- NOTE | 2022-11-16 07:30 | MR_ITS ---
WS: [id number] MRI HEAD WITH CONTRAST TECHNIQUE: Sagittal T1, T2 axial, T2 axial FLAIR, axial susceptibility weighted imaging, axial diffus ion weighted images, and coronal T2 images were obtained. Pre and post-T1 axial and post T1 coronal i mages. ADC and FSPGR images. CLINICAL INFORMATION: R51.9 - Headache, unspecified COMPARISON: None. FINDINGS: Some images degraded by motion. No evidence of restricted diffusion to suggest acute ischemia. Ventricular system and basilar cistern s are patent. No suspicious intracranial signal normalities. Normal brownlee-white differentiation. Normal posterior fossa. Normal vascular flow voids at the skull base. No extra-axial fluid collection . Paranasal sinuses are well aerated. Mastoid air cells well aerated. No hemosiderin on the susceptib ly weighted images. 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 Communication with the fourth ventricle. No abnormal gadolinium enhancement. Normal dural venous s inuses. Normal optic chiasm and pituitary infundibulum. No other suspicious findings. IMPRESSION: 1. No evidence of restricted diffusion to suggest acute ischemia. 2. No suspicious intracranial signal normalities. Normal brownlee-white differentiation. 3. 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 4. No abnormal gadolinium enhancement. 5. No other suspicious findings.
[2022-11-16] MEDS: gadobenate dimeglumine 20 mL vial IV (08:11)
== END 2022-11-16 07:17 | disposition home or self-care (01) ==
PROVIDERS: PCP Family Medicine; Visit Provider Psychiatry & Neurology Neurology
DX: R51.9 Headache, unspecified (principal)
CPT/HCPCS: 70544; 70553; A9577